=== PATIENT | male | born 1955 | race Caucasian/White ===

== ENCOUNTER 2017-12-05 16:41 | Inpatient (IN) | payer OTHER, MEDICARE ==
[~2017-12-05] VITALS: Ht 177.8 cm; Wt 90.4 kg
[2017-12-05] MEDS ORDERED: NACL 0.9% 1,000 ML IV ONE (16:50)
[2017-12-05 16:55] VITALS: BP_SYST 149
[2017-12-05] MEDS ORDERED: ASPIRIN 81 MG TAB.CHEW PO ONE (17:00)
[2017-12-05] MEDS ORDERED: NITROGLYCERIN 1 INCH (GM) OINT. TP ONE (17:00)
[2017-12-05] MEDS ORDERED: IPRATROPIUM/ALBUTEROL SULFATE 3 ML AMPUL.NEB INH ONE (17:00)
[2017-12-05 17:43] LABS: EOSINOPHILS # (AUTO) 0.3 K/uL (0.0-0.4); EOSINOPHILS % (AUTO) 4.9 % (0.0-4.0); MONOCYTES # (AUTO) 0.5 K/uL (0.0-1.0); MONOCYTES % (AUTO) 7.8 % (1.7-9.3); WHITE BLOOD COUNT (AUTO) 6.9 K/uL (4.8-10.8)
[2017-12-05 17:45] LABS: BASOPHILS # (AUTO) 0.1 K/uL (0.0-0.2); BASOPHILS % (AUTO) 0.9 % (0.0-2.0); HEMATOCRIT 37.2 % (36-54); LYMPHOCYTES # (AUTO) 2.1 K/uL (1.0-5.5); LYMPHOCYTES % (AUTO) 30.3 % (20.5-51.5); MEAN CORPUSCULAR HEMOGLOBIN 30 pg (27-31); MEAN CORPUSCULAR HGB CONC 32 % (32-36); MEAN CORPUSCULAR VOLUME 91 fL (79.0-98.0); NEUTROPHILS % (AUTO) 56.1 % (40.0-70.0); RED BLOOD CELL COUNT(AUTO) 4.07 MIL/uL (4.2-6.2)
[2017-12-05 17:46] LABS: CALCIUM 8.7 mg/dL (8.4-11.0); CREATININE 1.11 mg/dL (0.55-1.30); POTASSIUM 3.8 mmol/L (3.5-5.1)
[2017-12-05 17:50] LABS: PROTHROMBIN TIME 10.6 SECS (9.5-12.5)
[2017-12-05 17:55] LABS: ALBUMIN 3.4 g/dL (3.4-4.8); TOTAL BILIRUBIN 0.3 mg/dL (0.0-1.0)
[2017-12-05 17:57] LABS: PLATELET COUNT (AUTO) 175 K/uL (130-430)
[2017-12-05] MEDS ORDERED: ENOXAPARIN SODIUM 100 MG/ML SYRINGE SUBCUT ONE (18:00)
[2017-12-05] MEDS ORDERED: INSULIN REGULAR, HUMAN 10 UNITS/0.1 ML INJ IVP ONE (18:15)
[2017-12-05] MEDS ORDERED: FUROSEMIDE 40 MG/4 ML VIAL IVP ONE (18:15)
[2017-12-05] MEDS ORDERED: CLOP75TA32 PO (18:26)
[2017-12-05] MEDS ORDERED: LIP80 PO (18:26)
[2017-12-05] MEDS ORDERED: BENA40TA2 PO (18:26)
[2017-12-05] MEDS ORDERED: COR25 PO (18:26)
[2017-12-05] MEDS ORDERED: ACET-2634 PO (18:26)
[2017-12-05] MEDS ORDERED: FURO40TA5 PO (18:26)
[2017-12-05] MEDS ORDERED: ASA81 PO (18:26)
[2017-12-05] MEDS ORDERED: ISOS30TA6 PO (18:26)
[2017-12-05] MEDS ORDERED: SITA1TBM7 PO (18:26)
[2017-12-05] MEDS ORDERED: INSNPH7030 (18:26)
[2017-12-05] MEDS ORDERED: AMLO5TAB4 PO (18:26)
[2017-12-05 18:56] VITALS: BP_SYST 153
[2017-12-05] MEDS ORDERED: NITROGLYCERIN 0.4 MG TAB.SUBL SL PRN (19:45)
[2017-12-05 20:00] VITALS: BP_SYST 131
[2017-12-05] MEDS ORDERED: FUROSEMIDE 40 MG TABLET PO SCH (21:00)
[2017-12-05] MEDS: ACETAMINOPHEN 500 MG TABLET PO SCH (21:03)
[2017-12-05] MEDS: INSULIN NPH/REGULAR 70-30, 100 UNITS/ML, 10 ML VIAL SQ SCH (21:07)
[2017-12-05] MEDS: INSULIN REGULAR, HUMAN 100 UNITS/ML, 10 ML VIAL (novoLIN R) SUBCUT PRN (21:07)
[2017-12-05] MEDS: FUROSEMIDE 40 MG/4 ML VIAL IVP SCH (22:15)
[2017-12-06 00:14] VITALS: BP_SYST 124
[2017-12-06] MEDS: ACETAMINOPHEN 500 MG TABLET PO SCH ×3 (05:58→21:09)
[2017-12-06 06:41] LABS: CALCIUM 8.5 mg/dL (8.4-11.0); CREATININE 1.02 mg/dL (0.55-1.30); POTASSIUM 3.2 mmol/L (3.5-5.1)
[2017-12-06 07:01] LABS: BASOPHILS % (AUTO) 0.5 % (0.0-2.0); EOSINOPHILS # (AUTO) 0.4 K/uL (0.0-0.4); EOSINOPHILS % (AUTO) 5.8 % (0.0-4.0); HEMATOCRIT 36.1 % (36-54); HEMOGLOBIN 11.8 g/dL (14.0-18.0); LYMPHOCYTES # (AUTO) 2.1 K/uL (1.0-5.5); MEAN CORPUSCULAR HEMOGLOBIN 30 pg (27-31); MEAN CORPUSCULAR HGB CONC 33 % (32-36); MEAN CORPUSCULAR VOLUME 92 fL (79.0-98.0); MONOCYTES # (AUTO) 0.6 K/uL (0.0-1.0); MONOCYTES % (AUTO) 8.5 % (1.7-9.3); NEUTROPHILS # (AUTO) 3.8 K/uL (1.8-7.7); NEUTROPHILS % (AUTO) 55.2 % (40.0-70.0); PLATELET COUNT (AUTO) 155 K/uL (130-430); RED BLOOD CELL COUNT(AUTO) 3.92 MIL/uL (4.2-6.2); RED CELL DISTRIBUTION WIDTH 13.2 % (9.0-15.0); WHITE BLOOD COUNT (AUTO) 6.9 K/uL (4.8-10.8)
[2017-12-06] MEDS: CARVEDILOL 25 MG TABLET (COREG) PO SCH ×2 (10:38→18:06)
[2017-12-06] MEDS: BENAZEPRIL HCL 20 MG TABLET (LOTENSIN) PO SCH (10:39)
[2017-12-06] MEDS: amLODIPine BESYLATE 5 MG TABLET PO SCH (10:39)
[2017-12-06] MEDS: ASPIRIN 81 MG TAB.CHEW PO SCH (10:40)
[2017-12-06] MEDS: SPIRONOLACTONE 25 MG TABLET (ALDACTONE) PO SCH (10:40)
[2017-12-06] MEDS: ISOSORBIDE MONONITRATE 30 MG TAB.ER.24H PO SCH (10:40)
[2017-12-06] MEDS: FUROSEMIDE 40 MG/4 ML VIAL IVP SCH ×2 (10:41→20:53)
[2017-12-06] MEDS: INSULIN NPH/REGULAR 70-30, 100 UNITS/ML, 10 ML VIAL SQ SCH ×2 (10:46→21:01)
[2017-12-06] MEDS: ENOXAPARIN SODIUM 40 MG/0.4 ML SYRINGE SUBCUT SCH (10:55)
[2017-12-06 11:24] VITALS: BP_SYST 148
[2017-12-06] MEDS: INSULIN REGULAR, HUMAN 100 UNITS/ML, 10 ML VIAL (novoLIN R) SUBCUT PRN ×3 (11:59→21:02)
[2017-12-06] MEDS ORDERED: CLOPIDOGREL BISULFATE 75 MG TABLET PO ONE (14:15)
[2017-12-06] MEDS: CLOPIDOGREL BISULFATE 75 MG TABLET PO SCH (15:05)
[2017-12-06 15:19] VITALS: BP_SYST 118
[2017-12-06] MEDS ORDERED: POTASSIUM CHLORIDE 20 MEQ/PKT PACKET PO ONE (17:45)
[2017-12-06 20:05] VITALS: BP_SYST 120
[2017-12-06] MEDS ORDERED: ATORVASTATIN 20 MG TABLET PO SCH (21:00)
[2017-12-07 01:40] VITALS: BP_SYST 124
[2017-12-07] MEDS: ACETAMINOPHEN 500 MG TABLET PO SCH ×2 (05:59→14:00)
[2017-12-07 08:00] VITALS: BP_SYST 132
[2017-12-07] MEDS: SPIRONOLACTONE 25 MG TABLET (ALDACTONE) PO SCH (08:46)
[2017-12-07] MEDS: CLOPIDOGREL BISULFATE 75 MG TABLET PO SCH (08:46)
[2017-12-07] MEDS: amLODIPine BESYLATE 5 MG TABLET PO SCH (08:46)
[2017-12-07] MEDS: ASPIRIN 81 MG TAB.CHEW PO SCH (08:47)
[2017-12-07] MEDS: ISOSORBIDE MONONITRATE 30 MG TAB.ER.24H PO SCH (08:47)
[2017-12-07] MEDS: CARVEDILOL 25 MG TABLET (COREG) PO SCH (08:47)
[2017-12-07] MEDS: BENAZEPRIL HCL 20 MG TABLET (LOTENSIN) PO SCH (08:48)
[2017-12-07] MEDS: FUROSEMIDE 40 MG/4 ML VIAL IVP SCH (08:48)
[2017-12-07] MEDS: INSULIN NPH/REGULAR 70-30, 100 UNITS/ML, 10 ML VIAL SQ SCH (08:57)
[2017-12-07] MEDS: ENOXAPARIN SODIUM 40 MG/0.4 ML SYRINGE SUBCUT SCH (09:00)
[2017-12-07 10:18] VITALS: BP_SYST 120
[2017-12-07 11:26] VITALS: BP_SYST 101
[2017-12-07] MEDS: INSULIN REGULAR, HUMAN 100 UNITS/ML, 10 ML VIAL (novoLIN R) SUBCUT PRN (12:13)
[2017-12-07 13:22] LABS: ALBUMIN 3.3 g/dL (3.4-4.8); CALCIUM 9.1 mg/dL (8.4-11.0); CREATININE 1.07 mg/dL (0.55-1.30); POTASSIUM 4.1 mmol/L (3.5-5.1); TOTAL BILIRUBIN 0.4 mg/dL (0.0-1.0)
[2017-12-07 15:04] VITALS: BP_SYST 118
== END 2017-12-07 17:40 | disposition home or self-care (01) | DRG 293 ==
LOC: SED 16:41 → STU 18:32
PROVIDERS: ADMIT Family Medicine; ATTEND Family Medicine
DX: I11.0 Hypertensive heart disease with heart failure (principal); E78.5 Hyperlipidemia, unspecified; I50.23 Acute on chronic systolic (congestive) heart failure; I25.10 Atherosclerotic heart disease of native coronary artery without angina pectoris; R07.89 Other chest pain; E11.65 Type 2 diabetes mellitus with hyperglycemia; F17.200 Nicotine dependence, unspecified, uncomplicated; Z95.1 Presence of aortocoronary bypass graft; Z95.5 Presence of coronary angioplasty implant and graft; Z79.899 Other long term (current) drug therapy; Z79.82 Long term (current) use of aspirin
CPT/HCPCS: 36415; 71045; 76700-TC; 80048; 80053; 82962; 83735-TC; 83880; 84484; 85025; 85610-TC; 85730-TC; 93005; 93306; 94640; 96361; 96372; 96374; 96375; 99285; J1650; J1815; J1940; J7620

== ENCOUNTER 2017-12-22 07:55 | Inpatient (IN) | payer OTHER, MEDICARE ==
[~2017-12-22] VITALS: Ht 177.8 cm; Wt 89.5 kg
[2017-12-22 07:55] VITALS: BP_SYST 136
[~2017-12-22 07:55] MED LIST: ACET-2634 PO; AMLO5TAB4 PO; ASA81 PO; BENA40TA2 PO; CLOP75TA32 PO; COR25 PO; FURO40TA5 PO; INSNPH7030; ISOS30TA6 PO; LIP80 PO; SITA1TBM7 PO
--- NOTE | 2017-12-22 07:55 | NUR ---
BROUGHT BACK TO BED #4 AND TRIAGED, REPORT GIVEN TO MURALI
--- NOTE | 2017-12-22 07:56 | NUR ---
Pt presents to ED sob. Pt reports feeling this way for a month since his bypass surgery. Pt said last night he couldn't sleep d/t dyspnea. Condition has worsened. Pt reports hx CHF, HTN, DM, MA. O2 sat is 98% on RA. VSS. A&O x4
--- NOTE | 2017-12-22 07:57 | NUR ---
ER at bedside examining patient.
[2017-12-22] MEDS ORDERED: NITROGLYCERIN 1 INCH (GM) OINT. TD ONE (08:15)
[2017-12-22 08:32] LABS: HEMATOCRIT 37.8 % (36-54); HEMOGLOBIN 12.5 g/dL (14.0-18.0); MEAN CORPUSCULAR HEMOGLOBIN 30 pg (27-31); MEAN CORPUSCULAR HGB CONC 33 % (32-36); MEAN CORPUSCULAR VOLUME 91 fL (79.0-98.0); PLATELET COUNT (AUTO) 149 K/uL (130-430); RED BLOOD CELL COUNT(AUTO) 4.13 MIL/uL (4.2-6.2); RED CELL DISTRIBUTION WIDTH 13.4 % (9.0-15.0); WHITE BLOOD COUNT (AUTO) 7.7 K/uL (4.8-10.8)
[2017-12-22 08:45] LABS: CALCIUM 8.8 mg/dL (8.4-11.0); CREATININE 0.91 mg/dL (0.55-1.30); POTASSIUM 4.6 mmol/L (3.5-5.1)
[2017-12-22 08:50] LABS: ALBUMIN 3.7 g/dL (3.4-4.8); TOTAL BILIRUBIN 0.7 mg/dL (0.0-1.0)
[2017-12-22 09:06] LABS: BAND % (MANUAL) 3 % (0-6); BASOPHILS % (MANUAL) 0 % (0-2); EOSINOPHILS % (MANUAL) 2 % (0-7); LYMPHOCYTES % (MANUAL) 20 % (20-46); MONOCYTES % (MANUAL) 12 % (0-11)
[2017-12-22] MEDS ORDERED: FUROSEMIDE 40 MG/4 ML VIAL IVP ONE (09:30)
[2017-12-22] MEDS ORDERED: NITROGLYCERIN 0.4 MG TAB.SUBL SL ONE (09:30)
--- NOTE | 2017-12-22 10:51 | NUR ---
Admission Note Received patient from ER with diagnosis of CHF. Initial Plan of Care discussed-patient verbalized understanding. . Oriented to room, call light, pain management and safety.
[2017-12-22 10:52] VITALS: BP_SYST 141
--- NOTE | 2017-12-22 10:58 | NUR ---
Patient will be admitted to care of Dr Nuñez. Admitted to Telemetry unit. Will go to room 103-B. Belongings list completed. Summary report printed. Report will be given at bedside. Transfer to Telemetry via ACLS protocol. Licensed nurse present. IV present no signs or symptoms of infiltration.
--- NOTE | 2017-12-22 11:17 | NUR ---
PAGED PAGED AYE BRAVO AT [phone] SPOKE WITH MADALYN.
--- NOTE | 2017-12-22 12:12 | NUR ---
Paging Dr. Nuñez x2: Paging Dr. Nuñez x2 regarding diet order. Awaiting callback.
--- NOTE | 2017-12-22 12:15 | NUR ---
Rounds: Patient laying in bed resting. Patient denies pain and discomfort. No SOB or respiratory distress noted. Safety precautions in place and call light within reach. No needs at this time. Will continue to monitor
[2017-12-22] MEDS ORDERED: LORazepam 2 MG/ML VIAL IVP PRN (13:15)
[2017-12-22] MEDS ORDERED: ONDANSETRON HCL 4 MG/2 ML VIAL IVP PRN (13:15)
[2017-12-22] MEDS ORDERED: DEXTROSE 50% JECT 50 ML DISP.SYRIN IVP PRN ×2 (13:15)
[2017-12-22] MEDS ORDERED: HYDROcodone/ACETAMIN 10-325 MG TAB PO PRN (13:15)
[2017-12-22] MEDS ORDERED: HYDROcodone/ACETAMIN 5-325 MG TAB (NORCO/ VICODIN) PO PRN (13:15)
--- NOTE | 2017-12-22 13:24 | NUR ---
CONSULTATION PAGED/CALLED Reason for Consultation: CHF Person Who was Notified: [phone] Consulting Physician: Sedrick LIMA Diamond Setter Apprentice Specialty: CARDIOLOGY Ordering Physician: Francisco LIMA
[2017-12-22] MEDS: ACETAMINOPHEN 500 MG TABLET PO SCH ×2 (13:43→21:02)
[2017-12-22] MEDS: NORMAL SALINE 5 ML DISP.SYRIN IVF SCH ×2 (13:44→21:00)
--- NOTE | 2017-12-22 14:15 | NUR ---
Rounding: Patient laying in bed resting. Patient denies pain and discomfort. No distress noted. Will continue to monitor.
--- NOTE | 2017-12-22 15:30 | NUR ---
CHF Orders per protocol: Patient had an Echocardiogram on 12/06/2017 during last admission. Patient on Coreg 25 mg BID.
[2017-12-22 16:10] VITALS: BP_SYST 139
[2017-12-22] MEDS: FUROSEMIDE 40 MG TABLET PO SCH (17:36)
[2017-12-22] MEDS: INSULIN REGULAR, HUMAN 100 UNITS/ML, 10 ML VIAL (novoLIN R) SUBCUT PRN ×2 (17:36→21:05)
--- NOTE | 2017-12-22 17:37 | NUR ---
Accucheck: Blood sugar 178, covered with 2 units Novolin R per sliding scale.
--- NOTE | 2017-12-22 18:33 | NUR ---
Closing Note: Patient is laying in bed resting. Patient denies pain and discomfort. Breathing is even and unlabored with no distress noted. IV patent and saline locked. Safety precautions in place; bed in lowest position, wheels locked, side rails x3, bed alarm activated and call light within reach. All needs met. Will endorse plan of care to NOC, nurse.
--- NOTE | 2017-12-22 19:05 | NUR ---
OPENING NOTES RECEIVED PATIENT IN BED AAO X4. DENIES PAIN AT THIS TIME. BREATHING REGULAR AND UNLABORED. PLAN OF CARE REVIEWED WITH PATIENT. RT HAND IV LINE INTACT. CALL LIGHT WITHIN REACH.
[2017-12-22 20:50] VITALS: BP_SYST 137
[2017-12-22] MEDS: CARVEDILOL 25 MG TABLET (COREG) PO SCH (20:53)
[2017-12-22] MEDS: ATORVASTATIN 20 MG TABLET PO SCH (20:53)
--- NOTE | 2017-12-22 21:05 | NUR ---
MED PASS DUE MEDICATIONS GIVEN AND TOLERATED. NO DISTRESS NOTED. CALL LIGHT WITHIN EASY REACH.
[2017-12-23 00:08] VITALS: BP_SYST 121
--- NOTE | 2017-12-23 00:45 | NUR ---
ROUNDS RESTING IN BED. DENIES PAIN. BREATHING UNLABORED. REMINDED PATIENT OF NPO STATUS FOR STRESS TEST. PATIENT VERBALIZES UNDERSTANDING. CALL LIGHT WITHIN EASY REACH. VITAL SIGNS STABLE.
--- NOTE | 2017-12-23 03:11 | NUR ---
ROUNDS PATIENT RESTING IN BED. NO DISTRESS NOTED. SR ON TELE MONITOR. BED ALARM ON. CALL LIGHT AND URINAL WITHIN REACH.
[2017-12-23] MEDS: FUROSEMIDE 40 MG TABLET PO SCH ×2 (05:56→17:40)
[2017-12-23] MEDS: ACETAMINOPHEN 500 MG TABLET PO SCH (05:56)
--- NOTE | 2017-12-23 06:30 | NUR ---
CLOSING NOTES PATIENT AWAKE IN BED. DENIES PAIN. BLOOD SUGAR 168. PATIENT REMINDED OF NPO STATUS FOR HEART STRESS TEST TODAY. IV LINE INTACT TO RT HAND. NEEDS ATTENDED. CALL LIGHT WITHIN REACH. SIDERAILS UP X2. BED IN LOWEST LOCKED POSITION.
[2017-12-23] MEDS: NORMAL SALINE 5 ML DISP.SYRIN IVF SCH ×3 (06:33→22:51)
[2017-12-23 07:54] LABS: CALCIUM 8.7 mg/dL (8.4-11.0); CREATININE 1.1 mg/dL (0.55-1.30); PHOSPHORUS 3.6 mg/dL (2.7-4.5)
[2017-12-23 08:00] VITALS: BP_SYST 128
--- NOTE | 2017-12-23 08:00 | NUR ---
initial notes rec patient awake alert with ivl on the l forearm intact. no infiltration noted. npo for now for stress test at 1030. resp easy and unlabored . no sob noted. call light within reached and knows when to call for assistance. bed in low position and side rails up and locked. fall/safety precaution instructed.
[2017-12-23 08:03] LABS: BASOPHILS # (AUTO) 0.1 K/uL (0.0-0.2); EOSINOPHILS # (AUTO) 0.2 K/uL (0.0-0.4); EOSINOPHILS % (AUTO) 3.3 % (0.0-4.0); HEMATOCRIT 36.5 % (36-54); HEMOGLOBIN 11.7 g/dL (14.0-18.0); LYMPHOCYTES # (AUTO) 1.4 K/uL (1.0-5.5); LYMPHOCYTES % (AUTO) 23.9 % (20.5-51.5); MEAN CORPUSCULAR HEMOGLOBIN 29 pg (27-31); MEAN CORPUSCULAR HGB CONC 32 % (32-36); MEAN CORPUSCULAR VOLUME 92 fL (79.0-98.0); MONOCYTES # (AUTO) 0.8 K/uL (0.0-1.0); MONOCYTES % (AUTO) 13.9 % (1.7-9.3); NEUTROPHILS # (AUTO) 3.5 K/uL (1.8-7.7); NEUTROPHILS % (AUTO) 57.9 % (40.0-70.0); PLATELET COUNT (AUTO) 129 K/uL (130-430); RED BLOOD CELL COUNT(AUTO) 3.98 MIL/uL (4.2-6.2); RED CELL DISTRIBUTION WIDTH 13.3 % (9.0-15.0)
[2017-12-23] MEDS ORDERED: METFORMIN HCL PO SCH (09:00)
[2017-12-23] MEDS ORDERED: [UNRECOGNIZED DRUG - OTHER] PO SCH (09:00)
[2017-12-23] MEDS: CARVEDILOL 25 MG TABLET (COREG) PO SCH ×2 (09:00→21:24)
[2017-12-23] MEDS ORDERED: SITAGLIPTIN PHOS PO SCH (09:00)
[2017-12-23] MEDS ORDERED: REGADENOSON 0.4 MG/5 ML SYRINGE IVP ONE (10:30)
--- NOTE | 2017-12-23 11:00 | NUR ---
rounds pt back from stress test and statred eating at bedside. will give due meds once last phase of the test is done.
[2017-12-23] MEDS: INSULIN REGULAR, HUMAN 100 UNITS/ML, 10 ML VIAL (novoLIN R) SUBCUT PRN ×2 (12:16→17:31)
--- NOTE | 2017-12-23 12:39 | NUR ---
rounds no hypo hyperglycemic reaction noted. call light within reached. no acute distress noted.
[2017-12-23] MEDS ORDERED: ACETAMINOPHEN 325 MG TABLET PO PRN (13:15)
[2017-12-23 13:37] VITALS: BP_SYST 143
--- NOTE | 2017-12-23 15:00 | NUR ---
rounds asleep when rounds made. no sob noted. call light within reached.
[2017-12-23 16:00] VITALS: BP_SYST 149
--- NOTE | 2017-12-23 16:00 | NUR ---
rounds sleeps at intervals otherwise watching tv. no sob noted. bed in low position. call light within reached.
[2017-12-23] MEDS: CLOPIDOGREL BISULFATE 75 MG TABLET PO SCH (17:36)
[2017-12-23] MEDS: ASPIRIN 81 MG TAB.CHEW PO SCH (17:37)
[2017-12-23] MEDS: ISOSORBIDE MONONITRATE 30 MG TAB.ER.24H PO SCH (17:38)
[2017-12-23] MEDS: amLODIPine BESYLATE 5 MG TABLET PO SCH (17:39)
[2017-12-23] MEDS: BENAZEPRIL HCL 20 MG TABLET (LOTENSIN) PO SCH (17:39)
--- NOTE | 2017-12-23 18:40 | NUR ---
closing notes no hypo hyperglycemic reaction noted. ate dinner and with good appetite. denies pain. call light within reached. bed in low position and side rails up and locked.
--- NOTE | 2017-12-23 19:20 | NUR ---
OPENING NOTES RECEIVED PATIENT IN BED. AAO X4. DENIES ANY PAIN. BREATHING UNLABORED ON ROM AIR. PLAN OF CARE REVIEWED WITH PATIENT. CALL LIGHT WITHIN EASY REACH. BED IN LOWEST LOCKED POSITION.
[2017-12-23 21:00] VITALS: BP_SYST 110
[2017-12-23] MEDS: ATORVASTATIN 20 MG TABLET PO SCH (21:23)
--- NOTE | 2017-12-23 21:25 | NUR ---
MED PASS DUE MEDICATIONS GIVEN AND TOLERATED. VITAL SIGNS STABLE. BLOOD SUGAR 135 NO COVERAGE NEEDED PER SLIDING SCALE.
[2017-12-24 00:56] VITALS: BP_SYST 96
--- NOTE | 2017-12-24 01:00 | NUR ---
ROUNDS PATIENT IN BED RESTING. BREATHING UNLABORED ON ROOM AIR. PATIENT DOES NOT WANT TO USE O2. PER PT HE'S BREATHING OK. CALL LIGHT WITHIN EASY REACH.
--- NOTE | 2017-12-24 03:30 | NUR ---
ROUNDS PATIENT JUST GOT BACK TO BED FROM THE BATHROOM. NO SOB NOTED. DENIES PAIN. PLACED CALL LIGHT WITHIN REACH.
[2017-12-24 05:29] LABS: BASOPHILS # (AUTO) 0.1 K/uL (0.0-0.2); BASOPHILS % (AUTO) 1.8 % (0.0-2.0); EOSINOPHILS # (AUTO) 0.5 K/uL (0.0-0.4); EOSINOPHILS % (AUTO) 7.7 % (0.0-4.0); HEMATOCRIT 34.8 % (36-54); HEMOGLOBIN 11.4 g/dL (14.0-18.0); LYMPHOCYTES # (AUTO) 1.6 K/uL (1.0-5.5); MEAN CORPUSCULAR HEMOGLOBIN 30 pg (27-31); MEAN CORPUSCULAR HGB CONC 33 % (32-36); MEAN CORPUSCULAR VOLUME 91 fL (79.0-98.0); MONOCYTES # (AUTO) 0.6 K/uL (0.0-1.0); MONOCYTES % (AUTO) 9.4 % (1.7-9.3); NEUTROPHILS # (AUTO) 3.4 K/uL (1.8-7.7); NEUTROPHILS % (AUTO) 55.1 % (40.0-70.0); PLATELET COUNT (AUTO) 124 K/uL (130-430); RED BLOOD CELL COUNT(AUTO) 3.83 MIL/uL (4.2-6.2); RED CELL DISTRIBUTION WIDTH 13.5 % (9.0-15.0); WHITE BLOOD COUNT (AUTO) 6.2 K/uL (4.8-10.8)
[2017-12-24 06:00] LABS: CALCIUM 8.4 mg/dL (8.4-11.0); CREATININE 1.08 mg/dL (0.55-1.30); POTASSIUM 3.5 mmol/L (3.5-5.1)
[2017-12-24] MEDS: INSULIN REGULAR, HUMAN 100 UNITS/ML, 10 ML VIAL (novoLIN R) SUBCUT PRN ×3 (06:00→21:36)
[2017-12-24] MEDS: NORMAL SALINE 5 ML DISP.SYRIN IVF SCH ×3 (06:03→21:38)
[2017-12-24] MEDS: FUROSEMIDE 40 MG TABLET PO SCH ×2 (06:03→17:45)
--- NOTE | 2017-12-24 06:03 | NUR ---
MED PASS DUE MEDICATIONS GIVEN. BLOOD SUGAR 162 COVERED WITH 2 UNITS OF REGULAR INSULIN PER SLIDING SCALE.
--- NOTE | 2017-12-24 06:41 | NUR ---
CLOSING NOTES PATIENT RESTING IN BED. NO DISTRESS NOTED. NEEDS ATTENDED. CALL LIGHT WITHIN REACH. SIDERAILS UP X2. BED IN LOWEST LOCKED POSITION.
[2017-12-24 08:00] VITALS: BP_SYST 103
--- NOTE | 2017-12-24 08:00 | NUR ---
initial notes rec patient awake alert sitting at the edge of the bed and eating breakfast. ivl on the r hand intact. no infiltration noted. resp easy and unlabored. no acute distress. no chest pain noted. bed in low position and side rails up and locked. call lightiwhtn reached and knows when to call for assistance.
[2017-12-24] MEDS: ASPIRIN 81 MG TAB.CHEW PO SCH (09:41)
[2017-12-24] MEDS: CLOPIDOGREL BISULFATE 75 MG TABLET PO SCH (09:41)
[2017-12-24] MEDS: amLODIPine BESYLATE 5 MG TABLET PO SCH (09:42)
[2017-12-24] MEDS: ISOSORBIDE MONONITRATE 30 MG TAB.ER.24H PO SCH (09:43)
--- NOTE | 2017-12-24 10:00 | NUR ---
rounds taking a nap at this time. resting comfortably. no sob noted.
--- NOTE | 2017-12-24 12:00 | NUR ---
rounds pt is eating lunch. denies pain.uses the urinal to void at bedside. call light within reached.
[2017-12-24 12:02] VITALS: BP_SYST 124
[2017-12-24] MEDS: CARVEDILOL 25 MG TABLET (COREG) PO SCH ×2 (12:11→21:32)
[2017-12-24] MEDS: BENAZEPRIL HCL 20 MG TABLET (LOTENSIN) PO SCH (12:12)
--- NOTE | 2017-12-24 14:00 | NUR ---
rounds asleep when rounds made. resting quietly. call light within reached.
[2017-12-24 16:02] VITALS: BP_SYST 117
--- NOTE | 2017-12-24 18:00 | NUR ---
rounds no hypo hyperglycemic reaction noted. eating dinner and brendan well. stable and needs attended
--- NOTE | 2017-12-24 20:00 | NUR ---
INITIAL NOTES: PT IS ALERT AND ORIENTED ; NOT IN ANY ACUTE DISTRESS; VITALS ARE STABLE ;ASSESSMENT DONE ; ON ROOM AIR; DENIED ANY CHEST PAIN OR DISCOMFORT ; NO SOB AT THIS TIME ; IV ON THE R WRIST 20 G, NO S/S OF ANY INFILTRATION NOTED ; FLUSHED WELL ; PT REFUSED BED ALARM ; ENCOURAGED PT TO CALL FOR ASSIST ; CALL ELMORE IN REACH ; WILL CONTINUE TO MONITOR PT .
[2017-12-24 21:15] VITALS: BP_SYST 115
--- NOTE | 2017-12-24 21:15 | NUR ---
MD ROUNDS: DR Vickie LIMA AT BEDSIDE ; MD EDUCATED PT ABOUT THE DIET - NA INTAKE , FLUID RESTRICTION ETC . PT VERBALIZED UNDERSTANDING AT THIS TIME TO
[2017-12-24] MEDS: ATORVASTATIN 20 MG TABLET PO SCH (21:28)
--- NOTE | 2017-12-24 21:30 | NUR ---
MEDICATION : DUE MEDS GIVEN ; EDUCATED PT ON COREG ; NO QUESTIONS AT TH IS TIME ; WILL CONTINUE TO MONITOR PT .
--- NOTE | 2017-12-25 00:10 | NUR ---
RN NOTES: PT IS SLEEPING ON AND OFF , NOT IN ANY ACUTE DISTRESS; WILL CONTINUE TO MONITOR PT .
[2017-12-25 01:00] VITALS: BP_SYST 113
--- NOTE | 2017-12-25 02:07 | NUR ---
RN NOTES: PT IS SLEEPING ,RESPIRATION IS EVEN AND NON LABORED ; WILL CONTINUE TO MONITOR PT .
--- NOTE | 2017-12-25 04:10 | NUR ---
RN NOTES: PT IS SLEEPING , NOT IN ANY ACUTE DISTRESS; WILL CONTINUE TO MONITOR PT .
[2017-12-25] MEDS: FUROSEMIDE 40 MG TABLET PO SCH (06:20)
[2017-12-25] MEDS: NORMAL SALINE 5 ML DISP.SYRIN IVF SCH (06:20)
[2017-12-25] MEDS: INSULIN REGULAR, HUMAN 100 UNITS/ML, 10 ML VIAL (novoLIN R) SUBCUT PRN ×2 (06:23→11:23)
--- NOTE | 2017-12-25 06:30 | NUR ---
RN NOTES: DUE MEDS GIVEN ; PT IS COMFORTABLE ; BS 160 , 2 UNITS OF REGULAR INSULIN GIVEN
[2017-12-25 07:17] LABS: BASOPHILS # (AUTO) 0.1 K/uL (0.0-0.2); BASOPHILS % (AUTO) 1.1 % (0.0-2.0); EOSINOPHILS # (AUTO) 0.7 K/uL (0.0-0.4); EOSINOPHILS % (AUTO) 9.8 % (0.0-4.0); HEMATOCRIT 35.9 % (36-54); HEMOGLOBIN 11.6 g/dL (14.0-18.0); LYMPHOCYTES # (AUTO) 1.9 K/uL (1.0-5.5); LYMPHOCYTES % (AUTO) 25.9 % (20.5-51.5); MEAN CORPUSCULAR HEMOGLOBIN 29 pg (27-31); MEAN CORPUSCULAR HGB CONC 33 % (32-36); MEAN CORPUSCULAR VOLUME 90 fL (79.0-98.0); MONOCYTES # (AUTO) 0.6 K/uL (0.0-1.0); MONOCYTES % (AUTO) 8.6 % (1.7-9.3); NEUTROPHILS # (AUTO) 4.2 K/uL (1.8-7.7); NEUTROPHILS % (AUTO) 54.6 % (40.0-70.0); PLATELET COUNT (AUTO) 138 K/uL (130-430); RED BLOOD CELL COUNT(AUTO) 3.97 MIL/uL (4.2-6.2); RED CELL DISTRIBUTION WIDTH 13.1 % (9.0-15.0); WHITE BLOOD COUNT (AUTO) 7.5 K/uL (4.8-10.8)
[2017-12-25 07:23] LABS: CREATININE 1.02 mg/dL (0.55-1.30); POTASSIUM 3.5 mmol/L (3.5-5.1)
--- NOTE | 2017-12-25 07:30 | NUR ---
CLOSING NOTES: REPOERT GIVEN TO RN AT BEDSIDE ; PT IS SLEEPING , NOT IN ANY ACUTE DISTRESS; ALL NEEDS MET .
[2017-12-25 08:00] VITALS: BP_SYST 132
--- NOTE | 2017-12-25 08:00 | NUR ---
Opening Note Report received from [facility] shift nurse. Patient is currently eating breakfast in bed. No signs of shortness of breath or bilateral LE edema noted. IV is on the right hand 20g saline locked. Call light is within reach and bed is in low position. Will continue to monitor.
[2017-12-25] MEDS: amLODIPine BESYLATE 5 MG TABLET PO SCH (08:59)
[2017-12-25] MEDS: ASPIRIN 81 MG TAB.CHEW PO SCH (08:59)
[2017-12-25] MEDS: BENAZEPRIL HCL 20 MG TABLET (LOTENSIN) PO SCH (08:59)
[2017-12-25] MEDS: ISOSORBIDE MONONITRATE 30 MG TAB.ER.24H PO SCH (09:00)
[2017-12-25] MEDS: CLOPIDOGREL BISULFATE 75 MG TABLET PO SCH (09:00)
[2017-12-25] MEDS: CARVEDILOL 25 MG TABLET (COREG) PO SCH (09:00)
--- NOTE | 2017-12-25 10:13 | NUR ---
Rounds Patient is currently resting in bed. No signs of distress noted.
[2017-12-25 11:24] VITALS: BP_SYST 111
[2017-12-25] MEDS ORDERED: LINA5TAB2 PO (11:38)
[2017-12-25 11:57] VITALS: BP_SYST 111
--- NOTE | 2017-12-25 12:21 | NUR ---
Transition of Care Instructions All transition of care instructions were provided to the patient. He verbalized understanding of all. 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 Mccauley , on 01/17/18. Patient is already taking Benazepril for his congestive heart failure.
--- NOTE | 2017-12-25 12:50 | NUR ---
Transition of Care Note IV and ID band removed. Patient left the unit in stable condition. All belonging were returned to the patient.
== END 2017-12-25 13:00 | disposition home or self-care (01) | DRG 291 ==
LOC: SED 07:55 → STU 09:55
PROVIDERS: ADMIT Preventive Medicine Preventive Medicine/Occupational Environmental Medicine; ATTEND Preventive Medicine Preventive Medicine/Occupational Environmental Medicine
DX: I11.0 Hypertensive heart disease with heart failure (principal); J96.00 Acute respiratory failure, unspecified whether with hypoxia or hypercapnia; I50.9 Heart failure, unspecified; E11.9 Type 2 diabetes mellitus without complications; I34.0 Nonrheumatic mitral (valve) insufficiency; I37.1 Nonrheumatic pulmonary valve insufficiency; I25.10 Atherosclerotic heart disease of native coronary artery without angina pectoris; E78.5 Hyperlipidemia, unspecified; Z79.899 Other long term (current) drug therapy; Z79.82 Long term (current) use of aspirin; Z72.0 Tobacco use; Z82.3 Family history of stroke; Z82.49 Family history of ischemic heart disease and other diseases of the circulatory system; Z83.3 Family history of diabetes mellitus; Z95.1 Presence of aortocoronary bypass graft; Z95.5 Presence of coronary angioplasty implant and graft
CPT/HCPCS: 36415; 71045; 80048; 80053; 82962; 83735-TC; 83880; 84100-TC; 84484; 85007; 85025; 85027; 87081; 93017; 96374; 99291; A9500; J1815; J1940; J2785

== ENCOUNTER 2018-01-09 06:14 | Inpatient (IN) | payer OTHER, MEDICARE ==
[~2018-01-09] VITALS: Ht 177.8 cm; Wt 91.2 kg
[~2018-01-09 06:14] MED LIST changes: +LINA5TAB2 PO
[2018-01-09 06:15] VITALS: BP_SYST 157
--- NOTE | 2018-01-09 06:17 | NUR ---
patient states he has had trouble breathing since last night. reoprts history of chf, diabetes, htn, and triple bypass in past. speaning in full sentences, pulse ox is 98% on room air. denies any chest pain or tightness
--- NOTE | 2018-01-09 06:17 | NUR ---
Patient to ER bed 7 to gown for evaluation. Side rails up. Report given to Carmela.
[2018-01-09] MEDS ORDERED: NACL 0.9% 1,000 ML IV ONE (06:24)
--- NOTE | 2018-01-09 06:25 | NUR ---
ER Dr. Garland at bedside examining patient. CXR performed at bedside
[2018-01-09] MEDS ORDERED: NITROGLYCERIN 1 INCH (GM) OINT. TP ONE (06:30)
--- NOTE | 2018-01-09 06:41 | NUR ---
#20 gauge angiocath placed to LFA. Use of asceptic technique. Opsite placed over site. Blood return noted. Blood for lab drawn from site. Flushed with 10 cc of normal saline. No evidence of infiltration noted. Patient tolerated well.
[2018-01-09 06:52] LABS: BASOPHILS # (AUTO) 0.1 K/uL (0.0-0.2); BASOPHILS % (AUTO) 0.9 % (0.0-2.0); EOSINOPHILS # (AUTO) 0.5 K/uL (0.0-0.4); EOSINOPHILS % (AUTO) 6.3 % (0.0-4.0); HEMATOCRIT 40.1 % (36-54); HEMOGLOBIN 12.9 g/dL (14.0-18.0); LYMPHOCYTES # (AUTO) 1.6 K/uL (1.0-5.5); LYMPHOCYTES % (AUTO) 19.8 % (20.5-51.5); MEAN CORPUSCULAR HEMOGLOBIN 29 pg (27-31); MEAN CORPUSCULAR HGB CONC 32 % (32-36); MEAN CORPUSCULAR VOLUME 90 fL (79.0-98.0); MONOCYTES # (AUTO) 0.5 K/uL (0.0-1.0); MONOCYTES % (AUTO) 6.7 % (1.7-9.3); NEUTROPHILS # (AUTO) 5.3 K/uL (1.8-7.7); PLATELET COUNT (AUTO) 157 K/uL (130-430); RED BLOOD CELL COUNT(AUTO) 4.45 MIL/uL (4.2-6.2); RED CELL DISTRIBUTION WIDTH 13.8 % (9.0-15.0)
[2018-01-09 07:08] LABS: CALCIUM 8.9 mg/dL (8.4-11.0); CREATININE 0.94 mg/dL (0.55-1.30)
[2018-01-09 07:15] LABS: PROTHROMBIN TIME 10.4 SECS (9.5-12.5)
[2018-01-09 07:16] LABS: ALBUMIN 3.6 g/dL (3.4-4.8); TOTAL BILIRUBIN 0.4 mg/dL (0.0-1.0)
--- NOTE | 2018-01-09 07:21 | NUR ---
ASSUMED CARE FOUND PT. LYING SUPINE IN BED A&OX3 SPEAKING IN FULL SENTENCES, DENIES ANY CHEST PAIN, NSR ON MONITOR. AWAIITNG FOR MD REEVAL
[2018-01-09] MEDS ORDERED: FUROSEMIDE 40 MG/4 ML VIAL IVP ONE (07:30)
--- NOTE | 2018-01-09 08:26 | NUR ---
Medication reconciliation completed with information provided by patient. Any prior medication reconciliation on file was reviewed and corrected.
[2018-01-09] MEDS ORDERED: methylPREDNISolone SOD SUCC/PF 62.5 MG/ML VIAL IVP ONE (08:45)
[2018-01-09] MEDS ORDERED: ALBUTEROL SULFATE 0.083% 2.5 MG/3 ML VIAL.NEB IH ONE (08:45)
[2018-01-09] MEDS ORDERED: IPRATROPIUM BROM 0.5 MG/2.5 ML VIAL.NEB (ATROVENT) IH ONE (08:45)
--- NOTE | 2018-01-09 09:00 | NUR ---
RT at bedside giving breathing tx.
--- NOTE | 2018-01-09 09:15 | NUR ---
Patient will be admitted to care of Dr Nuñez. Admitted to telemetry unit. Will go to room 118B. Belongings list completed. Summary report printed. Report will be given at bedside.
--- NOTE | 2018-01-09 09:17 | NUR ---
ADMISSION NOTE Received patient from ER via ana, received report from ALEXIA MADRIGAL. Patient admitted with diagnosis of RESPIRATORY FAILURE. Patient oriented to hospital routine, call light, toileting and safety-patient verbalized understanding.
[2018-01-09 09:25] VITALS: BP_SYST 133
[2018-01-09 09:29] VITALS: BP_SYST 133
--- NOTE | 2018-01-09 10:23 | NUR ---
Rounds Patient is resting in bed no signs of distress noted at the moment. Patient is complaining of some SOB. Dr. Whitmore is covering for Dr. Carbone and will see the patient. IV is on the LFA 20g, saline locked. Call light is within reach and bed is in low position.
[2018-01-09] MEDS ORDERED: LORazepam 2 MG/ML VIAL IVP PRN (11:00)
[2018-01-09] MEDS ORDERED: HYDROcodone/ACETAMIN 5-325 MG TAB (NORCO/ VICODIN) PO PRN (11:00)
[2018-01-09] MEDS ORDERED: ACETAMINOPHEN 325 MG TABLET PO PRN (11:00)
[2018-01-09] MEDS ORDERED: ONDANSETRON HCL 4 MG/2 ML VIAL IVP PRN (11:00)
[2018-01-09] MEDS ORDERED: HYDROcodone/ACETAMIN 10-325 MG TAB PO PRN (11:00)
[2018-01-09] MEDS ORDERED: DEXTROSE 50% JECT 50 ML DISP.SYRIN IVP PRN ×2 (11:00)
[2018-01-09] MEDS ORDERED: HYDROmorphone 2 MG/ML VIAL IVP PRN (11:00)
[2018-01-09 11:18] VITALS: BP_SYST 133
--- NOTE | 2018-01-09 11:31 | NUR ---
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
--- NOTE | 2018-01-09 11:43 | NUR ---
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
[2018-01-09] MEDS: INSULIN REGULAR, HUMAN 100 UNITS/ML, 10 ML VIAL (novoLIN R) SUBCUT PRN ×3 (11:54→21:03)
[2018-01-09 11:59] LABS: NEUTROPHILS % (AUTO) 66.3 % (40.0-70.0)
--- NOTE | 2018-01-09 12:30 | NUR ---
Rounds Patient is resting in bed. O2 sat is at 99% on 2l o2 via NC. Will continue to monitor.
[2018-01-09] MEDS: ACETAMINOPHEN 500 MG TABLET PO SCH ×2 (14:00→21:14)
[2018-01-09] MEDS: NORMAL SALINE 5 ML DISP.SYRIN IVF SCH ×2 (14:14→21:14)
--- NOTE | 2018-01-09 14:37 | NUR ---
Rounds Patient is resting in bed. No signs of distress noted.
[2018-01-09 15:20] VITALS: BP_SYST 146
--- NOTE | 2018-01-09 16:14 | NUR ---
Rounds/MD Rounds Dr. Nicholas, who is covering for Sedrick Singh, rounded on the patient. Orders were received. Patient is not in any distress at the moment. Call light is within reach and bed is in low position.
--- NOTE | 2018-01-09 18:10 | NUR ---
Closing Note Patient is currently resting in bed and does not report any SOB at the moment. IV is on the LFA 20g saline locked. Call light is within reach and bed is in low position. Safety precautions are in place. Will endorse care to the oncoming nurse.
--- NOTE | 2018-01-09 19:52 | NUR ---
INITIAL NOTE AT INITIAL ASSESSMENT, PATIENT IS RESTING IN BED, STABLE, NO SIGNS OF RESPIRATORY DISTRESS. FAMILY IS AT BEDSIDE. PATIENT VERBALIZES NO PAIN. PLAN OF CARE FOR THE EVENING IS COMMUNICATED WITH THE PATIENT AND FAMILY. CALL LIGHT- TEACH BACK IS SUCCESSFUL. BED IS LOCKED, ALARMED, AND AT THE LOWEST LEVEL. FALL AND SAFETY PRECAUTIONS WILL BE IN PLACE THROUGHOUT THE SHIFT.
[2018-01-09 20:00] VITALS: BP_SYST 133
[2018-01-09] MEDS: FUROSEMIDE 40 MG TABLET PO SCH (20:52)
[2018-01-09] MEDS: CARVEDILOL 25 MG TABLET (COREG) PO SCH (20:53)
--- NOTE | 2018-01-09 21:50 | NUR ---
BED ALARM REFUSAL NOTE PATIENT IS RESTING IN BED, STABLE, NO SIGNS OF RESPIRATORY DISTRESS. FAMILY IS AT BEDSIDE. BLOOD SUGAR CHECK AT THIS TIME REQUIRES INSULIN COVERAGE PER SSI ORDERED BY MD. BED IS LOCKED, AND AT THE LOWEST LEVEL. PATIENT IS REFUSING BED ALARM DESPITE EDUCATION. PATIENT IS NOT A FALL RISK PER BOSS FALL SCALE, HE IS ASSESSED WITH STEADY GAIT AT THIS TIME.
--- NOTE | 2018-01-09 23:47 | NUR ---
NOTE PATIENT IS SLEEPING, STABLE, NO SIGNS OF RESPIRATORY DISTRESS. CALL LIGHT WITHIN REACH. BED IS LOCKED, AND AT THE LOWEST LEVEL.
[2018-01-10 00:51] VITALS: BP_SYST 132
--- NOTE | 2018-01-10 01:45 | NUR ---
NOTE PATIENT IS SLEEPING, STABLE, NO SIGNS OF RESPIRATORY DISTRESS. CALL LIGHT WITHIN REACH. BED IS LOCKED, AND AT THE LOWEST LEVEL.
--- NOTE | 2018-01-10 03:10 | NUR ---
NOTE PATIENT IS SLEEPING, STABLE, NO SIGNS OF RESPIRATORY DISTRESS. CALL LIGHT WITHIN REACH. BED IS LOCKED, AND AT THE LOWEST LEVEL.
--- NOTE | 2018-01-10 05:07 | NUR ---
NOTE PATIENT IS SLEEPING, STABLE, NO SIGNS OF RESPIRATORY DISTRESS. CALL LIGHT WITHIN REACH. BED IS LOCKED, AND AT THE LOWEST LEVEL.
[2018-01-10] MEDS: ACETAMINOPHEN 500 MG TABLET PO SCH ×3 (06:00→20:22)
[2018-01-10] MEDS: NORMAL SALINE 5 ML DISP.SYRIN IVF SCH ×3 (06:03→20:14)
[2018-01-10] MEDS: INSULIN REGULAR, HUMAN 100 UNITS/ML, 10 ML VIAL (novoLIN R) SUBCUT PRN ×4 (06:06→20:13)
--- NOTE | 2018-01-10 06:22 | NUR ---
CLOSING NOTE PATIENT IS RESTING IN BED, STABLE, NO SIGNS OF RESPIRATORY DISTRESS. BLOOD SUGAR CHECK AT THIS TIME REQUIRES INSULIN COVERAGE PER SSI ORDERED BY MD. THROUGHOUT THE NIGHT, PATIENT DID NOT HAVE ANY DIFFICULTY BREATHING OR SHORTNESS OF BREATH. CALL LIGHT WITHIN REACH. BED IS LOCKED, AND AT THE LOWEST LEVEL.
[2018-01-10 06:40] LABS: BASOPHILS % (AUTO) 0.4 % (0.0-2.0); EOSINOPHILS % (AUTO) 0.2 % (0.0-4.0); HEMATOCRIT 36.2 % (36-54); HEMOGLOBIN 11.8 g/dL (14.0-18.0); LYMPHOCYTES # (AUTO) 1.1 K/uL (1.0-5.5); LYMPHOCYTES % (AUTO) 12.7 % (20.5-51.5); MEAN CORPUSCULAR HEMOGLOBIN 30 pg (27-31); MEAN CORPUSCULAR HGB CONC 33 % (32-36); MEAN CORPUSCULAR VOLUME 91 fL (79.0-98.0); MONOCYTES # (AUTO) 0.5 K/uL (0.0-1.0); MONOCYTES % (AUTO) 5.9 % (1.7-9.3); NEUTROPHILS # (AUTO) 7.2 K/uL (1.8-7.7); PLATELET COUNT (AUTO) 145 K/uL (130-430); RED BLOOD CELL COUNT(AUTO) 3.97 MIL/uL (4.2-6.2); RED CELL DISTRIBUTION WIDTH 13.5 % (9.0-15.0); WHITE BLOOD COUNT (AUTO) 8.8 K/uL (4.8-10.8)
[2018-01-10 07:07] LABS: ALBUMIN 3.4 g/dL (3.4-4.8); CALCIUM 8.7 mg/dL (8.4-11.0); CREATININE 0.93 mg/dL (0.55-1.30); PHOSPHORUS 3.6 mg/dL (2.7-4.5); POTASSIUM 3.6 mmol/L (3.5-5.1); TOTAL BILIRUBIN 0.4 mg/dL (0.0-1.0)
[2018-01-10 07:50] VITALS: BP_SYST 130
--- NOTE | 2018-01-10 07:50 | NUR ---
INITIAL ROUNDS Received pt AAOx4, no s/s resp distress, no c/o SOB, no c/o pain or discomfort. Plan of care for the day reviewed with pt-pt verbalized his understanding. Pt ambulatory with steady gait with no c/o SOB-observed when pt ambulated to the bathroom. Pain management, disease process, skin and safety discussed-teach back done. Call light within reach.
--- NOTE | 2018-01-10 08:17 | NUR ---
Nutrition Update Nahid Scale 17 noted. Pt admitted for respiratory failure Diet: cardiac low cholesterol low fat 2gm Na diet BMI: 28.8 kg/m2 RD to follow per nutrition care standards.
[2018-01-10 08:19] LABS: NEUTROPHILS % (AUTO) 80.8 % (40.0-70.0)
[2018-01-10] MEDS: BENAZEPRIL HCL 20 MG TABLET (LOTENSIN) PO SCH (08:58)
[2018-01-10] MEDS: CARVEDILOL 25 MG TABLET (COREG) PO SCH ×2 (08:59→20:10)
[2018-01-10] MEDS: amLODIPine BESYLATE 5 MG TABLET PO SCH (08:59)
[2018-01-10] MEDS ORDERED: METFORMIN HCL PO SCH (09:00)
[2018-01-10] MEDS: FUROSEMIDE 40 MG TABLET PO SCH ×2 (09:00→20:09)
[2018-01-10] MEDS ORDERED: SITAGLIPTIN PHOS PO SCH (09:00)
[2018-01-10] MEDS ORDERED: [UNRECOGNIZED DRUG - OTHER] PO SCH (09:00)
[2018-01-10] MEDS: CLOPIDOGREL BISULFATE 75 MG TABLET PO SCH (09:00)
[2018-01-10] MEDS: ISOSORBIDE MONONITRATE 30 MG TAB.ER.24H PO SCH (09:01)
[2018-01-10] MEDS: ASPIRIN 81 MG TAB.CHEW PO SCH (09:01)
[2018-01-10] MEDS: ATORVASTATIN 20 MG TABLET PO SCH (09:03)
[2018-01-10] MEDS ORDERED: IPRATROPIUM BROM 0.5 MG/2.5 ML VIAL.NEB (ATROVENT) INH PRN (09:30)
[2018-01-10] MEDS ORDERED: ALBUTEROL SULFATE 0.083% 2.5 MG/3 ML VIAL.NEB INH PRN (09:30)
--- NOTE | 2018-01-10 10:25 | NUR ---
ROUNDS Pt sitting up ion bed with no c/o shortness of breath, no c/o pain or discomfort. Pt seen by Dr. Cramer earlier-she informed pt they may need to adjust his "fluid meds". Pt given fresh cup of coffee per request. Needs met, call light within reach.
[2018-01-10 10:30] VITALS: BP_SYST 130
[2018-01-10 11:49] VITALS: BP_SYST 115
--- NOTE | 2018-01-10 12:26 | NUR ---
ROUNDS/MED Pt given Insulin as ordered for glucose 254 mg/dl. Pt with no c/o shortness of breath, no c/o pain or discomfort. Needs met, call light within reach.
[2018-01-10] MEDS: IPRATROPIUM BROM 0.5 MG/2.5 ML VIAL.NEB (ATROVENT) INH SCH ×2 (13:56→19:53)
[2018-01-10] MEDS: ALBUTEROL SULFATE 0.083% 2.5 MG/3 ML VIAL.NEB INH SCH ×2 (13:56→19:53)
--- NOTE | 2018-01-10 14:35 | NUR ---
ROUNDS Pt sitting up in bed with no c/o shortness of breath, no c/o pain or discomfort. Pt stated he spoke with Dr. Nuñez earlier. Needs met, call light within reach.
[2018-01-10 15:42] VITALS: BP_SYST 102
--- NOTE | 2018-01-10 16:04 | NUR ---
ROUNDS Pt sitting up on bedside with no s/s resp distress, no c/o pain or discomfort. Pt given cup of coffee with sweet-n-low per pt request. Needs met, call light within reach.
--- NOTE | 2018-01-10 19:30 | NUR ---
CLOSING NOTE Pt sitting up in bed watching television. No s/s resp distress, no c/o chest pain or discomfort. Needs met, call light within reach.
--- NOTE | 2018-01-10 19:30 | NUR ---
Initial Note Received patient awake, alert and oriented. No SOB noted. Denies any n/v or pain at this time. Saline lock flushed - patent. Skin intact and no peripheral edema noted. On room air. NSR on monitor. Care and monitoring will be provided. Needs attended. Call light within reach. Bed at lowest position at all times. Refused bed alarm. Ambulates well with steady gait. Kept warm and comfortable.
[2018-01-10 20:00] VITALS: BP_SYST 103
--- NOTE | 2018-01-10 20:15 | NUR ---
RN Note Due meds given, tolerated well. Given snack as requested. Latest blood sugar was 250, coverage given. Needs attended.
[2018-01-11] VITALS: BP_SYST 112
--- NOTE | 2018-01-11 | NUR ---
RN Note Sleeping at this time. No SOB or grimacing noted.
[2018-01-11] MEDS: IPRATROPIUM BROM 0.5 MG/2.5 ML VIAL.NEB (ATROVENT) INH SCH ×4 (00:52→19:50)
[2018-01-11] MEDS: ALBUTEROL SULFATE 0.083% 2.5 MG/3 ML VIAL.NEB INH SCH ×4 (00:52→19:50)
--- NOTE | 2018-01-11 02:42 | NUR ---
RN Note Asleep. Turns by himself. No distress noted.
--- NOTE | 2018-01-11 05:15 | NUR ---
RN Note Patient awake and alert. Lab at the bedside for blood draw and patient requests to have his blood sugar checked as well. Due meds given. Flushed saline lock and latest blood sugar was 121, no coverage given. Complain of mild pain generalized. Repositions himself. Kept warm and comfortable.
[2018-01-11] MEDS: ACETAMINOPHEN 500 MG TABLET PO SCH ×3 (05:18→21:01)
[2018-01-11] MEDS: NORMAL SALINE 5 ML DISP.SYRIN IVF SCH ×3 (05:19→21:01)
--- NOTE | 2018-01-11 06:03 | NUR ---
End Note Afebrile. VS stable. No complain of SOB or n/v throughout the night. Medicated for pain twice as scheduled. Complain of mild generalized pain. Saline lock. Latest blood sugar was 121, no coverage given. Refused SCDs. Ambulates well with steady gait and no SOB. Repositions himself. AM labs today. Care and monitoring provided per protocol. Needs attended. Call light within reach. Bed at lowest position at all times. Refused bed alarm. Kept warm and comfortable. NSR on monitor.
[2018-01-11 06:46] LABS: BASOPHILS % (AUTO) 0.4 % (0.0-2.0); EOSINOPHILS # (AUTO) 0.4 K/uL (0.0-0.4); EOSINOPHILS % (AUTO) 4.5 % (0.0-4.0); HEMATOCRIT 36.6 % (36-54); HEMOGLOBIN 12.2 g/dL (14.0-18.0); LYMPHOCYTES # (AUTO) 2.9 K/uL (1.0-5.5); LYMPHOCYTES % (AUTO) 33.7 % (20.5-51.5); MEAN CORPUSCULAR HEMOGLOBIN 30 pg (27-31); MEAN CORPUSCULAR HGB CONC 33 % (32-36); MEAN CORPUSCULAR VOLUME 89 fL (79.0-98.0); MONOCYTES # (AUTO) 0.7 K/uL (0.0-1.0); MONOCYTES % (AUTO) 7.9 % (1.7-9.3); NEUTROPHILS # (AUTO) 4.7 K/uL (1.8-7.7); NEUTROPHILS % (AUTO) 53.5 % (40.0-70.0); PLATELET COUNT (AUTO) 157 K/uL (130-430); RED BLOOD CELL COUNT(AUTO) 4.11 MIL/uL (4.2-6.2); RED CELL DISTRIBUTION WIDTH 13.8 % (9.0-15.0); WHITE BLOOD COUNT (AUTO) 8.7 K/uL (4.8-10.8)
[2018-01-11 06:47] LABS: CALCIUM 8.8 mg/dL (8.4-11.0); CREATININE 1.19 mg/dL (0.55-1.30); POTASSIUM 3.9 mmol/L (3.5-5.1)
--- NOTE | 2018-01-11 07:24 | NUR ---
AM ROUNDS: Patient is resting in bed. No signs or symptoms of distress noted.
[2018-01-11] MEDS: ATORVASTATIN 20 MG TABLET PO SCH (08:22)
[2018-01-11] MEDS: ISOSORBIDE MONONITRATE 30 MG TAB.ER.24H PO SCH (08:23)
[2018-01-11] MEDS: CARVEDILOL 25 MG TABLET (COREG) PO SCH ×2 (08:23→21:01)
[2018-01-11] MEDS: FUROSEMIDE 40 MG TABLET PO SCH ×2 (08:23→21:01)
[2018-01-11] MEDS: CLOPIDOGREL BISULFATE 75 MG TABLET PO SCH (08:24)
[2018-01-11] MEDS: BENAZEPRIL HCL 20 MG TABLET (LOTENSIN) PO SCH (08:24)
[2018-01-11] MEDS: ASPIRIN 81 MG TAB.CHEW PO SCH (08:24)
[2018-01-11] MEDS: amLODIPine BESYLATE 5 MG TABLET PO SCH (08:25)
[2018-01-11 08:29] VITALS: BP_SYST 115
--- NOTE | 2018-01-11 09:35 | NUR ---
NOTE Received pt from Albert MADRIGAL for continuation of care. Pt stable and has call light within reach.
--- NOTE | 2018-01-11 09:35 | NUR ---
REPORT: Given to Basilia for continuation of care.
--- NOTE | 2018-01-11 10:35 | NUR ---
Note Agree with Albert MADRIGAL MST assessment done this shift.
[2018-01-11 12:00] VITALS: BP_SYST 96
[2018-01-11] MEDS: INSULIN REGULAR, HUMAN 100 UNITS/ML, 10 ML VIAL (novoLIN R) SUBCUT PRN ×2 (12:26→21:05)
--- NOTE | 2018-01-11 13:45 | NUR ---
note Pt was seen and assessed by Dr Alexandro Nuñez around noon. Pt's questions/concerns were answered at this time. Pt's tele unit attached and intact all shift. No needs noted. No SOB/resp distress or chest pain/discomfort noted all shift. Pt checked on q1' and PRN all shift for needs and care. Call light within reach.
--- NOTE | 2018-01-11 14:20 | NUR ---
DC PLANNING Discussed dc planning w Dr Nuñez in [facility] around 1235, states ordering venous dplr of rt lower extremity if neg for DVT plan to dc home today.
--- NOTE | 2018-01-11 14:40 | NUR ---
Note Called Dr Alexandro Nuñez for results of US Doppler of lower extremity (Rt) at 1429. Waiting for call back.
[2018-01-11 15:37] VITALS: BP_SYST 103
--- NOTE | 2018-01-11 16:50 | NUR ---
Note Dr Nuñez was called again to give results of US of lower extremity.
--- NOTE | 2018-01-11 17:45 | NUR ---
Note Pt sitting up in bed eating his dinner. Tele unit has been attached and intact all shift. IV in left forearm intact and patent. Pt was checked on q1' and PRN all shift for needs and care. No SOB/resp distress or pain/discomfort noted at this time. Pt maintained with safety precautions all shift. No resp distress noted on ambulation to the bathroom, ambulates with a steady gait. No needs noted at this time. Call light within reach.
--- NOTE | 2018-01-11 19:10 | NUR ---
OPENING NOTE Received report from Basilia. Patient resting in bed awake, alert, oriented x4. Breathing unlabored and even on room air. No signs of distress, no need at this time. Fall and safety precautions in place. Bed in lowest position, brake on, call light within reach. Alarm refused. SCDs refused. IV access saline locked. Will continue to monitor.
[2018-01-11 20:05] VITALS: BP_SYST 108
--- NOTE | 2018-01-11 21:08 | NUR ---
Med Pass. Blood sugar 154. Administered 2 units of regular insulin PRN per sliding scale per order.
--- NOTE | 2018-01-11 23:36 | NUR ---
Patient resting in bed with eyes closed. Breathing unlabored and even on room air. No signs of distress, no need at this time. Fall and safety precautions in place. Bed in lowest position, brake on, call light within reach. Will continue to monitor.
[2018-01-11 23:47] VITALS: BP_SYST 103
[2018-01-12] MEDS: ALBUTEROL SULFATE 0.083% 2.5 MG/3 ML VIAL.NEB INH SCH ×3 (01:00→13:00)
[2018-01-12] MEDS: IPRATROPIUM BROM 0.5 MG/2.5 ML VIAL.NEB (ATROVENT) INH SCH ×3 (01:00→13:00)
[2018-01-12] MEDS: ACETAMINOPHEN 500 MG TABLET PO SCH (06:24)
[2018-01-12] MEDS: INSULIN REGULAR, HUMAN 100 UNITS/ML, 10 ML VIAL (novoLIN R) SUBCUT PRN ×2 (06:27→11:39)
[2018-01-12] MEDS: NORMAL SALINE 5 ML DISP.SYRIN IVF SCH (06:28)
--- NOTE | 2018-01-12 06:30 | NUR ---
Med Pass. Blood sugar 160. Administered 2 units of regular insulin SQ per PRN insulin sliding scale.
--- NOTE | 2018-01-12 07:26 | NUR ---
CLOSING NOTE Gave report to Basilia. Patient resting in bed with eyes closed. Breathing unlabored and even on room air. No signs of distress, no need at this time. Fall and safety precautions in place. Bed in lowest position, brake on, call light within reach. Endorsed care to day shift nurse.
[2018-01-12 07:43] VITALS: BP_SYST 115
--- NOTE | 2018-01-12 08:00 | NUR ---
Note Pt sitting on side of bed eating his breakfast. No SOB/resp distress or chest pain/discomfort noted at this time. Tele unit attached and intact at this time. IV in left hand intact and patent. Call light within reach - no needs noted at this time.
[2018-01-12] MEDS: FUROSEMIDE 40 MG TABLET PO SCH (08:26)
[2018-01-12] MEDS: BENAZEPRIL HCL 20 MG TABLET (LOTENSIN) PO SCH (08:26)
[2018-01-12] MEDS: CARVEDILOL 25 MG TABLET (COREG) PO SCH (08:27)
[2018-01-12] MEDS: ISOSORBIDE MONONITRATE 30 MG TAB.ER.24H PO SCH (08:27)
[2018-01-12] MEDS: CLOPIDOGREL BISULFATE 75 MG TABLET PO SCH (08:27)
[2018-01-12] MEDS: ATORVASTATIN 20 MG TABLET PO SCH (08:27)
[2018-01-12] MEDS: ASPIRIN 81 MG TAB.CHEW PO SCH (08:28)
[2018-01-12] MEDS: amLODIPine BESYLATE 5 MG TABLET PO SCH (08:28)
[2018-01-12 11:27] VITALS: BP_SYST 102
--- NOTE | 2018-01-12 12:00 | NUR ---
Note Pt resting in bed. Denies any needs at this time. Pt checked on q1' for needs and care. Call light within reach.
--- NOTE | 2018-01-12 12:35 | NUR ---
Note Dr A Paliwal on the floor to assess pt at this time.
[2018-01-12 13:34] VITALS: BP_SYST 112
--- NOTE | 2018-01-12 13:55 | NUR ---
Note Pt's tele unit was dc'd and returned to quality technician. IV in left hand was dc'd - no swelling/redness/bleeding or drainage noted at this time. Pt dressed in street clothes and packed all belongings. Pt checked side table and drawers for belongings. Pt given discharge instructions and questions/concerns were answered at this time. Pt stable. Denies any SOB/resp distress or chest pain/discomfort noted. Pt stable at this time. No needs noted at this time.
--- NOTE | 2018-01-12 14:00 | NUR ---
Post discharge appt. Pt already has an appt with patient safety tech Dr Mccauley at [facility] in [place] at 11.30am on 01/17/18.
--- NOTE | 2018-01-12 14:00 | NUR ---
note Pt off the floor to private car with all his belongings and discharge paperwork.
--- NOTE | 2018-01-13 14:45 | NUR ---
DISCHARGE FOLLOW UP PHONE CALL: DIRECTOR OF ASSESSING phoned pt @ [phone] who states he is doing well. Pt states he has an appointment with Dr. Garces and his PCP, Dr. Lomax on 01/17. Pt states his glucose levels are out of control but is monitoring it. Pt states he takes his DM pills and is logging everything down for the doctor to see. Pt did not have any new medications and no questions/concerns regarding his d/c instructions. DIRECTOR OF ASSESSING encouraged pt to bring his d/c instructions and his medications to his appointment next week. DIRECTOR OF ASSESSING encouraged pt to call [id number] if questions arise.
== END 2018-01-12 14:00 | disposition home or self-care (01) | DRG 291 ==
LOC: SED 06:14 → STU 08:58
PROVIDERS: ADMIT Preventive Medicine Preventive Medicine/Occupational Environmental Medicine; ATTEND Preventive Medicine Preventive Medicine/Occupational Environmental Medicine
DX: I11.0 Hypertensive heart disease with heart failure (principal); J96.01 Acute respiratory failure with hypoxia; I50.43 Acute on chronic combined systolic (congestive) and diastolic (congestive) heart failure; E78.5 Hyperlipidemia, unspecified; E11.65 Type 2 diabetes mellitus with hyperglycemia; I27.20 Pulmonary hypertension, unspecified; R74.0 Nonspecific elevation of levels of transaminase and lactic acid dehydrogenase [LDH]; E78.00 Pure hypercholesterolemia, unspecified; F17.210 Nicotine dependence, cigarettes, uncomplicated; I25.10 Atherosclerotic heart disease of native coronary artery without angina pectoris; I25.2 Old myocardial infarction; Z82.49 Family history of ischemic heart disease and other diseases of the circulatory system; Z83.3 Family history of diabetes mellitus; Z95.1 Presence of aortocoronary bypass graft; Z95.5 Presence of coronary angioplasty implant and graft; Z79.82 Long term (current) use of aspirin; Z79.899 Other long term (current) drug therapy; I42.0 Dilated cardiomyopathy
CPT/HCPCS: 36415; 36600; 71045; 80048; 80053; 82803-TC; 82962; 83735-TC; 83880; 84100-TC; 84484; 85025; 85610-TC; 85730-TC; 87081; 93005; 93971; 94640; 96361; 96374; 96375; 99285; J1815; J1940; J2930; J7030; J7613

== ENCOUNTER 2019-06-05 02:45 | Inpatient (IN) | payer OTHER, MEDICAID ==
[~2019-06-05] VITALS: Ht 180.3 cm; Wt 76.7 kg
[~2019-06-05 02:45] MED LIST changes: -BENA40TA2 PO; +BENA40TA8 PO
[2019-06-05 02:47] VITALS: BP_SYST 143
[2019-06-05] MEDS ORDERED: ASPIRIN 325 MG TABLET PO ONE ×2 (03:04→03:30)
[2019-06-05] MEDS ORDERED: NITROGLYCERIN 0.4 MG TAB.SUBL SL ONE ×3 (03:04→03:30)
[2019-06-05] MEDS ORDERED: ASPIRIN 325 MG TABLET ONE (03:24)
[2019-06-05 03:37] LABS: BASOPHILS % (AUTO) 0.6 % (0.0-2.0); EOSINOPHILS # (AUTO) 0.2 K/uL (0.0-0.4); HEMATOCRIT 44.7 % (36-54); HEMOGLOBIN 14.6 g/dL (14.0-18.0); LYMPHOCYTES # (AUTO) 1.9 K/uL (1.0-5.5); LYMPHOCYTES % (AUTO) 29.9 % (20.5-51.5); MEAN CORPUSCULAR HEMOGLOBIN 30 pg (27-31); MEAN CORPUSCULAR HGB CONC 33 % (32-36); MEAN CORPUSCULAR VOLUME 92 fL (79.0-98.0); MONOCYTES # (AUTO) 0.5 K/uL (0.0-1.0); NEUTROPHILS # (AUTO) 3.6 K/uL (1.8-7.7); NEUTROPHILS % (AUTO) 57.5 % (40.0-70.0); PLATELET COUNT (AUTO) 130 K/uL (130-430); RED BLOOD CELL COUNT(AUTO) 4.87 MIL/uL (4.2-6.2); WHITE BLOOD COUNT (AUTO) 6.2 K/uL (4.8-10.8)
[2019-06-05 04:05] LABS: ALBUMIN 3.3 g/dL (3.4-4.8); CALCIUM 8.6 mg/dL (8.4-11.0); CREATININE 1.13 mg/dL (0.55-1.30); POTASSIUM 3.6 mmol/L (3.5-5.1); TOTAL BILIRUBIN 0.3 mg/dL (0.0-1.0)
[2019-06-05] MEDS ORDERED: METO2.5T6 PO (04:16)
[2019-06-05] MEDS ORDERED: POTA-10 PO (04:16)
[2019-06-05] MEDS ORDERED: CARV25TA55 PO (04:16)
[2019-06-05] MEDS ORDERED: triseba (04:16)
[2019-06-05] MEDS ORDERED: AMLO5TAB4 PO (04:16)
[2019-06-05] MEDS ORDERED: EMPA10TA PO (04:18)
[2019-06-05] MEDS ORDERED: NITROGLYCERIN 0.4 MG TAB.SUBL SL PRN (04:45)
[2019-06-05 07:50] VITALS: BP_SYST 136
[2019-06-05] MEDS ORDERED: ACETAMINOPHEN 325 MG TABLET PO PRN (09:00)
[2019-06-05] MEDS: METOLAZONE 2.5 MG TABLET PO SCH (10:08)
[2019-06-05] MEDS: ASPIRIN 81 MG TAB.CHEW PO SCH (10:09)
[2019-06-05] MEDS: FUROSEMIDE 40 MG TABLET PO SCH ×2 (10:10→21:33)
[2019-06-05] MEDS: CARVEDILOL 25 MG TABLET (COREG) PO SCH ×2 (10:10→21:33)
[2019-06-05] MEDS: ISOSORBIDE MONONITRATE 30 MG TAB.ER.24H PO SCH (10:10)
[2019-06-05] MEDS: amLODIPine BESYLATE 5 MG TABLET PO SCH (10:11)
[2019-06-05] MEDS: ATORVASTATIN 20 MG TABLET PO SCH (10:11)
[2019-06-05] MEDS: CLOPIDOGREL BISULFATE 75 MG TABLET PO SCH (10:12)
[2019-06-05 12:26] VITALS: BP_SYST 129
[2019-06-05] MEDS: ACETAMINOPHEN 500 MG TABLET PO SCH ×2 (13:29→21:33)
[2019-06-05] MEDS ORDERED: GLUCOSE 15 GM GEL (in 37.5 GM TUBE) PO PRN (14:00)
[2019-06-05] MEDS ORDERED: DEXTROSE 50%-WATER 50 ML DISP.SYRIN IVP PRN (14:00)
[2019-06-05] MEDS ORDERED: D5W 1,000 ML IV PRN (14:00)
[2019-06-05 16:58] VITALS: BP_SYST 91
[2019-06-05] MEDS: INSULIN REGULAR, HUMAN 100 UNITS/ML, 10 ML VIAL (humuLIN R) SUBCUT PRN (17:48)
[2019-06-05 19:30] VITALS: BP_SYST 102
[2019-06-06 00:22] VITALS: BP_SYST 105
[2019-06-06] MEDS: ACETAMINOPHEN 500 MG TABLET PO SCH ×3 (06:35→22:00)
[2019-06-06 06:46] LABS: BASOPHILS % (AUTO) 0.5 % (0.0-2.0); EOSINOPHILS # (AUTO) 0.2 K/uL (0.0-0.4); EOSINOPHILS % (AUTO) 3.3 % (0.0-4.0); HEMATOCRIT 48.3 % (36-54); HEMOGLOBIN 15.8 g/dL (14.0-18.0); LYMPHOCYTES # (AUTO) 1.8 K/uL (1.0-5.5); LYMPHOCYTES % (AUTO) 26.8 % (20.5-51.5); MEAN CORPUSCULAR HEMOGLOBIN 30 pg (27-31); MEAN CORPUSCULAR HGB CONC 33 % (32-36); MEAN CORPUSCULAR VOLUME 92 fL (79.0-98.0); MONOCYTES # (AUTO) 0.5 K/uL (0.0-1.0); MONOCYTES % (AUTO) 7.3 % (1.7-9.3); NEUTROPHILS # (AUTO) 4.3 K/uL (1.8-7.7); NEUTROPHILS % (AUTO) 62.1 % (40.0-70.0); RED BLOOD CELL COUNT(AUTO) 5.25 MIL/uL (4.2-6.2); RED CELL DISTRIBUTION WIDTH 14.6 % (9.0-15.0); WHITE BLOOD COUNT (AUTO) 6.9 K/uL (4.8-10.8)
[2019-06-06 07:51] LABS: PLATELET COUNT (AUTO) 131 K/uL (130-430)
[2019-06-06 08:00] VITALS: BP_SYST 119
[2019-06-06] MEDS: ISOSORBIDE MONONITRATE 30 MG TAB.ER.24H PO SCH (08:45)
[2019-06-06] MEDS: FUROSEMIDE 40 MG TABLET PO SCH ×2 (08:45→21:53)
[2019-06-06] MEDS: CLOPIDOGREL BISULFATE 75 MG TABLET PO SCH (08:46)
[2019-06-06] MEDS: CARVEDILOL 25 MG TABLET (COREG) PO SCH ×2 (08:46→21:53)
[2019-06-06] MEDS: ATORVASTATIN 20 MG TABLET PO SCH (08:46)
[2019-06-06] MEDS: amLODIPine BESYLATE 5 MG TABLET PO SCH (08:47)
[2019-06-06] MEDS: METOLAZONE 2.5 MG TABLET PO SCH (08:47)
[2019-06-06] MEDS: ASPIRIN 81 MG TAB.CHEW PO SCH (08:47)
[2019-06-06 08:48] LABS: ALBUMIN 3.6 g/dL (3.4-4.8); CALCIUM 9.2 mg/dL (8.4-11.0); CREATININE 1.15 mg/dL (0.55-1.30); POTASSIUM 3.2 mmol/L (3.5-5.1); THYROID STIMULATING HORMONE 0.92 uIu/mL (0.34-4.82); TOTAL BILIRUBIN 0.7 mg/dL (0.0-1.0)
[2019-06-06] MEDS: INSULIN REGULAR, HUMAN 100 UNITS/ML, 10 ML VIAL (humuLIN R) SUBCUT PRN ×2 (11:26→21:59)
[2019-06-06 12:10] VITALS: BP_SYST 106
[2019-06-06 16:47] VITALS: BP_SYST 102
[2019-06-06] MEDS ORDERED: POTASSIUM CHLORIDE 20 MEQ TAB.PRT.SR PO ONE ×2 (22:45→23:30)
[2019-06-07 00:23] VITALS: BP_SYST 101
[2019-06-07] MEDS: ACETAMINOPHEN 500 MG TABLET PO SCH ×2 (06:00→13:36)
[2019-06-07 07:50] VITALS: BP_SYST 128
[2019-06-07] MEDS: ISOSORBIDE MONONITRATE 30 MG TAB.ER.24H PO SCH (09:16)
[2019-06-07] MEDS: ASPIRIN 81 MG TAB.CHEW PO SCH (09:16)
[2019-06-07] MEDS: amLODIPine BESYLATE 5 MG TABLET PO SCH (09:16)
[2019-06-07] MEDS: CLOPIDOGREL BISULFATE 75 MG TABLET PO SCH (09:16)
[2019-06-07] MEDS: FUROSEMIDE 40 MG TABLET PO SCH (09:17)
[2019-06-07] MEDS: CARVEDILOL 25 MG TABLET (COREG) PO SCH (09:17)
[2019-06-07] MEDS: METOLAZONE 2.5 MG TABLET PO SCH (09:17)
[2019-06-07] MEDS: ATORVASTATIN 20 MG TABLET PO SCH (09:17)
[2019-06-07] MEDS: INSULIN REGULAR, HUMAN 100 UNITS/ML, 10 ML VIAL (humuLIN R) SUBCUT PRN ×2 (11:59→17:46)
[2019-06-07 12:29] VITALS: BP_SYST 102
[2019-06-07 16:21] VITALS: BP_SYST 101
[2019-06-07 19:43] VITALS: BP_SYST 101
== END 2019-06-07 20:00 | disposition home or self-care (01) | DRG 206 ==
LOC: SED 02:45 → STU 04:40
PROVIDERS: ADMIT Family Medicine; ATTEND Family Medicine
DX: M94.0 Chondrocostal junction syndrome [Tietze] (principal); E44.1 Mild protein-calorie malnutrition; I25.5 Ischemic cardiomyopathy; E11.9 Type 2 diabetes mellitus without complications; E78.5 Hyperlipidemia, unspecified; I11.0 Hypertensive heart disease with heart failure; I25.10 Atherosclerotic heart disease of native coronary artery without angina pectoris; G89.4 Chronic pain syndrome; I50.9 Heart failure, unspecified; Z82.49 Family history of ischemic heart disease and other diseases of the circulatory system; Z83.3 Family history of diabetes mellitus; Z95.1 Presence of aortocoronary bypass graft; Z95.810 Presence of automatic (implantable) cardiac defibrillator
CPT/HCPCS: 36415; 71045; 80053; 80061; 82550-TC; 82962; 83036; 83880; 84443-TC; 84484; 85025; 85379; 93005; 93306; 99285; G0378; J1815

== ENCOUNTER 2020-02-05 00:59 | Inpatient (IN) | payer OTHER, BC, SELFPAY ==
[~2020-02-05] VITALS: Ht 180.3 cm; Wt 83.9 kg
[~2020-02-05 00:59] MED LIST changes: +CARV25TA55 PO; +EMPA10TA PO; +METO2.5T6 PO; +POTA-10 PO; +triseba
[2020-02-05 01:03] VITALS: BP_SYST 156
--- NOTE | 2020-02-05 01:10 | NUR ---
Placed in room 6 . Placed on csw, blood pressure machine and pulse oximeter. To gown for exam. Side rails up. Report given to Kimberly MADRIGAL.
--- NOTE | 2020-02-05 01:27 | NUR ---
patient denies cough, fever, chills, nausea, vomiting, constipation, diarrhea. pt denies pain.
--- NOTE | 2020-02-05 01:27 | NUR ---
pt a&o x4 from home c/o of shortness of breath for past two nights when he lays down to sleep. pt hx of CHF. pt reports worsening pressure in mid back when trying to take deep breath. pt denies taking any new medications recently. pt states he feels a bloatedness in his abdomen x1 week. pt takes lasix 40mg in the morning and afternoon. pt denies swelling of lower extremities. will continue to monitor.
--- NOTE | 2020-02-05 01:30 | NUR ---
# 20 gauge angiocath placed to LAC. Use of asceptic technique. Opsite placed over site. Blood return noted. Blood, blood cultures, lactic for lab drawn from site. Flushed with 10 cc of normal saline. No evidence of infiltration noted. Patient tolerated well.
--- NOTE | 2020-02-05 01:39 | NUR ---
radiology at bedside for xrays.
--- NOTE | 2020-02-05 01:48 | NUR ---
ER Dr. TAVAREZ at bedside examining patient.
--- NOTE | 2020-02-05 02:05 | NUR ---
COVID SWAB COLLECTED AND SENT TO LAB.
[2020-02-05 02:23] LABS: BASOPHILS # (AUTO) 0.1 K/uL (0.0-0.2); BASOPHILS % (AUTO) 0.9 % (0.0-2.0); EOSINOPHILS # (AUTO) 0.3 K/uL (0.0-0.4); EOSINOPHILS % (AUTO) 2.5 % (0.0-4.0); HEMATOCRIT 42.1 % (36-54); HEMOGLOBIN 14.2 g/dL (14.0-18.0); LYMPHOCYTES # (AUTO) 2.2 K/uL (1.0-5.5); LYMPHOCYTES % (AUTO) 21.7 % (20.5-51.5); MEAN CORPUSCULAR HEMOGLOBIN 32 pg (27-31); MEAN CORPUSCULAR HGB CONC 34 % (32-36); MEAN CORPUSCULAR VOLUME 93 fL (79.0-98.0); MONOCYTES # (AUTO) 0.5 K/uL (0.0-1.0); MONOCYTES % (AUTO) 5.4 % (1.7-9.3); NEUTROPHILS % (AUTO) 69.5 % (40.0-70.0); PLATELET COUNT (AUTO) 154 K/uL (130-430); RED BLOOD CELL COUNT(AUTO) 4.51 MIL/uL (4.2-6.2); RED CELL DISTRIBUTION WIDTH 14.7 % (9.0-15.0); WHITE BLOOD COUNT (AUTO) 10.1 K/uL (4.8-10.8)
[2020-02-05 02:32] LABS: PROTHROMBIN TIME 9.9 SECS (9.5-12.5)
[2020-02-05 02:35] LABS: ALBUMIN 3.7 g/dL (3.4-4.8); CALCIUM 8.9 mg/dL (8.4-11.0); CREATININE 0.91 mg/dL (0.55-1.30)
--- NOTE | 2020-02-05 02:43 | NUR ---
CRITICAL LAB REPORTING - TROPONIN 5.38. AWARE.
[2020-02-05] MEDS ORDERED: ASPIRIN 81 MG TAB.CHEW PO ONE (02:45)
[2020-02-05] MEDS ORDERED: ENOXAPARIN SODIUM 60 MG/0.6 ML SYRINGE SUBCUT ONE (02:45)
[2020-02-05] MEDS ORDERED: ENOXAPARIN SODIUM 80 MG/0.8 ML SYRINGE ONE (03:15)
--- NOTE | 2020-02-05 03:20 | NUR ---
lab at bedside for second lactic.
--- NOTE | 2020-02-05 03:26 | NUR ---
second nurse at bedside completing repeat EKG.
[2020-02-05] MEDS ORDERED: NITROGLYCERIN 0.4 MG TAB.SUBL SL ONE ×2 (03:57→04:00)
--- NOTE | 2020-02-05 03:57 | NUR ---
Dr Martin spoke Dr Sebastian (cardio consult)
[2020-02-05] MEDS ORDERED: POTASSIUM CHLORIDE 20 MEQ TAB.PRT.SR PO ONE (04:00)
[2020-02-05] MEDS ORDERED: *HEPARIN PER PHARMACY XX PRN (04:00)
--- NOTE | 2020-02-05 04:02 | NUR ---
first dose of nitroglycerin tablet 0.4mg given sublingually per MD order.
--- NOTE | 2020-02-05 04:04 | NUR ---
lab at bedside drawing troponin
--- NOTE | 2020-02-05 04:07 | NUR ---
second dose of nitroglycerin tablet 0.4mg given sublingually per MD order. pt reports symptoms have not improved.
--- NOTE | 2020-02-05 04:12 | NUR ---
third dose of nitroglycerin tablet 0.4mg given sublingually per MD order. pt reported minor improvement in breathing. MD aware.
--- NOTE | 2020-02-05 04:42 | NUR ---
critical lab reporting - troponin 4.417. aware.
--- NOTE | 2020-02-05 05:11 | NUR ---
Patient's code status is full code paperwork completed and placed in chart.
--- NOTE | 2020-02-05 06:10 | NUR ---
patient vital signs stable. patient sleeping comfortably in bed. no signs of acute distress. will continue to monitor.
[2020-02-05] MEDS: D5NS 1,000 ML IV SCH ×2 (06:33→07:10)
--- NOTE | 2020-02-05 07:07 | NUR ---
Patient will be admitted to care of Juliet. Admitted to tele unit. Will go to room pending. Belongings list completed. Complete and up to date summary report printed. SBAR report to be given at bedside with opportunity for questions.
--- NOTE | 2020-02-05 07:13 | NUR ---
report given to KAITLIN Hull for continuation of care.
--- NOTE | 2020-02-05 07:15 | NUR ---
Report from Kimberly MADRIGAL
--- NOTE | 2020-02-05 07:20 | NUR ---
Patient sitting up in ana, Francisco&Ox4 NPO status
--- NOTE | 2020-02-05 08:40 | NUR ---
Patient awake & alert, sitting up in [facility]
[2020-02-05] MEDS ORDERED: DOCUSATE SODIUM 100 MG/10 ML UDC PO PRN (09:15)
[2020-02-05] MEDS ORDERED: FUROSEMIDE 40 MG TABLET PO SCH (09:15)
[2020-02-05] MEDS ORDERED: ONDANSETRON HCL 4 MG/2 ML VIAL IVP PRN (09:15)
[2020-02-05] MEDS ORDERED: BENAZEPRIL HCL 20 MG TABLET (LOTENSIN) PO SCH (09:15)
[2020-02-05] MEDS ORDERED: NON-FORMULARY MEDICATION (Empagliflozin (Jardiance) 10 MG) PO SCH (09:15)
[2020-02-05] MEDS ORDERED: MORPHINE 2 MG/ML INJ. SYRINGE IVP PRN (09:15)
[2020-02-05] MEDS ORDERED: D5NS 1,000 ML IV SCH (09:15)
[2020-02-05] MEDS ORDERED: HYDROcodone/ACETAMIN 7.5-325 MG TAB PO PRN (09:15)
[2020-02-05] MEDS ORDERED: ZOLPIDEM TARTRATE 5 MG TABLET PO PRN (09:15)
[2020-02-05] MEDS ORDERED: ACETAMINOPHEN 500 MG TABLET PO PRN (09:15)
[2020-02-05] MEDS ORDERED: D5W 1,000 ML IV PRN (09:30)
[2020-02-05] MEDS ORDERED: NITROGLYCERIN 0.4 MG TAB.SUBL SL PRN (09:30)
[2020-02-05] MEDS ORDERED: DEXTROSE 50% JECT 50 ML DISP.SYRIN IVP PRN (09:30)
[2020-02-05] MEDS ORDERED: GLUCOSE (DEXTROSE) ORAL GEL -Adults PO PRN (09:30)
--- NOTE | 2020-02-05 10:09 | NUR ---
DR MALONE HERE TO SEE PT
--- NOTE | 2020-02-05 10:28 | NUR ---
Dr. Chung at bedside examining patient.
[2020-02-05] MEDS ORDERED: metFORMIN HCL 500 MG TABLET PO ONE (10:45)
[2020-02-05] MEDS ORDERED: FUROSEMIDE 40 MG TABLET PO ONE (10:45)
[2020-02-05] MEDS ORDERED: PANTOPRAZOLE SODIUM 40 MG TAB PO ONE (10:45)
[2020-02-05] MEDS ORDERED: CARVEDILOL 25 MG TABLET (COREG) PO ONE (11:00)
[2020-02-05] MEDS ORDERED: ATORVASTATIN 20 MG TABLET PO ONE (11:00)
[2020-02-05] MEDS ORDERED: amLODIPine BESYLATE 5 MG TABLET PO ONE (11:00)
[2020-02-05] MEDS ORDERED: lisinopriL 20 MG TABLET PO ONE (11:00)
[2020-02-05 11:38] LABS: BILIRUBIN,URINE NEGATIVE (NEGATIVE); BLOOD, URINE NEGATIVE (NEGATIVE); CLARITY/URINE SLIGHTLY HAZY (CLEAR); COLOR,URINE ORANGE (YELLOW); GLUCOSE,URINE NEGATIVE (NEGATIVE); KETONES,URINE 1+ (NEGATIVE); LEUKOCYTE ESTERASE ,URINE NEGATIVE (NEGATIVE); NITRITE, URINE NEGATIVE (NEGATIVE); PROTEIN URINE 2+ (NEGATIVE); UROBILINOGEN,URINE 0.2 (0.2-1.0)
[2020-02-05 11:43] LABS: FREE T4 (FREE THYROXINE) 1.2 ng/dl (0.8-1.5); PHOSPHORUS 2.5 mg/dL (2.7-4.5); THYROID STIMULATING HORMONE 1.11 uIu/mL (0.36-3.74)
[2020-02-05 11:55] LABS: BACTERIA,URINE FEW /HPF (None Seen); MUCUS,URINE 1+ /LPF (None Seen); RBC,URINE NONE SEEN /HPF (0-3); WBC,URINE 0-3 /HPF (0-3)
[2020-02-05 11:57] LABS: BARBITURATE, URINE NEGATIVE (NEG <=200); BENZODIAZEPINE, URINE NEGATIVE (NEG <=150); CANNABINOID, URINE NEGATIVE (NEG <=50); COCAINE, URINE NEGATIVE (NEG <=150); METHAMPHETAMINES SCREEN,URINE NEGATIVE (NEG <=500); OPIATE, URINE NEGATIVE (NEG <=100); PHENCYCLIDINE SCREEN,URINE NEGATIVE (NEG <=25); UR TRICYCLIC ANTIDEPRESSANTS NEGATIVE (NEG <=300); URINE AMPHETAMINE NEGATIVE (NEG <=500); URINE METHADONE NEGATIVE (NEG <=200); URINE OXYCODONE SCREEN NEGATIVE (NEG <=100); URINE PROPOXYPHENE SCREEN NEGATIVE (NEG <=300)
--- NOTE | 2020-02-05 12:05 | NUR ---
Per Dr. Chung discontinue NPO, daibetic diet
--- NOTE | 2020-02-05 12:07 | NUR ---
PT ambulatory to toilet
--- NOTE | 2020-02-05 12:10 | NUR ---
Medication reconciliation completed with information provided by Patient. Any prior medication reconciliation on file was reviewed and corrected.
[2020-02-05] MEDS ORDERED: HEPARIN SODIUM,PORCINE 3000 UNITS/0.6 ML BOLUS IVP PRN (13:00)
[2020-02-05] MEDS ORDERED: HEPARIN SODIUM,PORCINE 2000 UNITS/0.4 ML BOLUS IVP PRN (13:00)
[2020-02-05] MEDS ORDERED: HEPARIN 25,000 UNITS in 250 ML PREMIX IV PRN (13:00)
[2020-02-05] MEDS ORDERED: NACL 0.9% 1,000 ML IV SCH (13:15)
--- NOTE | 2020-02-05 13:15 | NUR ---
Patient in patient restroom x20 min. knoccked on door x3 patient responded verbally.
--- NOTE | 2020-02-05 13:38 | NUR ---
Patient educated on smoking not allowed in hospital. Patient denied smoking in restroom, offered nicotine patch with MD order. patient denied need for nicotine patch.
--- NOTE | 2020-02-05 15:15 | NUR ---
PT SITTING UP IN [facility] A&OX4
--- NOTE | 2020-02-05 17:30 | NUR ---
PT GIVEN DINNER TRAY
--- NOTE | 2020-02-05 18:35 | NUR ---
Patient will be admitted to care of DR ASTORGA. Admitted to unit. Will go to room 104B. Belongings list completed. Complete and up to date summary report printed. SBAR report to be given at bedside with opportunity for questions.
--- NOTE | 2020-02-05 18:56 | NUR ---
ADMISSION NOTE Received patient from ER via ana, received report from CANDELARIA MADRIGAL. Patient admitted with diagnosis of CP. Patient oriented to hospital routine, call light, toileting and safety-patient verbalized understanding.
--- NOTE | 2020-02-05 19:10 | NUR ---
OPENING NOTES PATIENT IS SITTING AT THE SIDE OF THE BED WITH ADMISSION NURSE AT BEDSIDE. NO SIGNS OF ACUTE RESPIRATORY DISTRESS NOTED. WILL CONTINUE TO MONITOR.
[2020-02-05] MEDS ORDERED: *LOVENOX 1MG/KG Q12H/PHARMACY XX ONE (19:15)
[2020-02-05 19:20] VITALS: BP_SYST 104
--- NOTE | 2020-02-05 20:30 | NUR ---
INITIAL NOTE PATIENT IS AGITATED AT THIS TIME, NO SIGNS OF DISTRESS NOTED. IV SITE PATENT, DRESSINGS C/D/I. ORIENTED PATIENT ON PLAN OF CARE AND ROOM. PATIENT RAISING VOICE WHEN EXPLAINING PLAN OF CARE SAYING THAT HE HAS BEEN COMPLAINING OF CONSTIPATION. EXPLAINED THAT THERE IS A PRN AVAILABLE. PATIENT REFUSES BED ALARM AFTER PATIENT DEMONSTRATES PROPER CALL LIGHT USAGE. BED AT LOWEST POSITION. CALL LIGHT WITHIN REACH, WILL CONTINUE TO MONITOR.
[2020-02-05] MEDS: FUROSEMIDE 40 MG/4 ML VIAL IVP SCH (21:00)
--- NOTE | 2020-02-05 22:00 | NUR ---
SPOKE TO DR. HESTER, CLARIFIED IF PATIENT WILL RECEIVE IVP AND PO LASIX. PO LASIX TO BE DISCONTINUED.
[2020-02-05] MEDS: CARVEDILOL 25 MG TABLET (COREG) PO SCH (22:18)
[2020-02-05] MEDS: ENOXAPARIN SODIUM 80 MG/0.8 ML SYRINGE SUBCUT SCH (22:19)
--- NOTE | 2020-02-05 22:20 | NUR ---
PROVIDED PO MEDICATIONS WELL IVP LASIX 4OMG, IV SITE PATENT, DRESSINGS C/D/I. PATIENT TOLERATED WELL. WILL CONTINUE TO MONITOR.
[2020-02-05] MEDS: INSULIN LISPRO SLIDING SCALE 100 UNITS/ML VIAL (humaLOG) SUBCUT PRN (22:38)
[2020-02-06 00:15] VITALS: BP_SYST 98
--- NOTE | 2020-02-06 00:24 | NUR ---
PATIENT IS IN THE BATHROOM AGAIN HOPING THAT THE COLACE WILL WORK. EXPLAINED TO PATIENT AGAIN THAT IT MAY TAKE LONGER TO WORK AND TO NOT TRY TO PUSH SO HARD. PATIENT WALKS WITH STEADY GAIT. WILL CONTINUE TO MONITOR.
--- NOTE | 2020-02-06 06:11 | NUR ---
CLOSING NOTES PATIENT IS RESTING, NO SIGNS OF DISTRESS NOTED. PATIENT AMBULATED TO THE RESTROOM MANY TIMES. IV SITE PATENT, DRESSINGS C/D/I, IVF RUNNING. COLOSTOMY BAG CHANGED. CALL LIGHT WITHIN REACH, BED ALARM REFUSED AFTER PATIENT REFUSED AFTER RISKS EXPLAINED. BED AT LOWEST POSITION. ALL NEEDS MET THROUGHOUT SHIFT. WILL ENDORSE CARE TO ONCOMING SHIFT.
[2020-02-06 06:24] LABS: BASOPHILS % (AUTO) 0.4 % (0.0-2.0); EOSINOPHILS # (AUTO) 0.1 K/uL (0.0-0.4); EOSINOPHILS % (AUTO) 1.4 % (0.0-4.0); HEMATOCRIT 35.4 % (36-54); HEMOGLOBIN 11.8 g/dL (14.0-18.0); LYMPHOCYTES # (AUTO) 2.5 K/uL (1.0-5.5); LYMPHOCYTES % (AUTO) 27.3 % (20.5-51.5); MEAN CORPUSCULAR HEMOGLOBIN 31 pg (27-31); MEAN CORPUSCULAR HGB CONC 33 % (32-36); MEAN CORPUSCULAR VOLUME 93 fL (79.0-98.0); MONOCYTES # (AUTO) 0.8 K/uL (0.0-1.0); MONOCYTES % (AUTO) 9.1 % (1.7-9.3); NEUTROPHILS # (AUTO) 5.7 K/uL (1.8-7.7); NEUTROPHILS % (AUTO) 61.8 % (40.0-70.0); PLATELET COUNT (AUTO) 122 K/uL (130-430); RED BLOOD CELL COUNT(AUTO) 3.79 MIL/uL (4.2-6.2); RED CELL DISTRIBUTION WIDTH 14.8 % (9.0-15.0); WHITE BLOOD COUNT (AUTO) 9.3 K/uL (4.8-10.8)
[2020-02-06 06:55] LABS: CALCIUM 7.9 mg/dL (8.4-11.0); CREATININE 0.86 mg/dL (0.55-1.30); POTASSIUM 3.3 mmol/L (3.5-5.1)
--- NOTE | 2020-02-06 07:35 | NUR ---
CRITICAL LAB: RECEIVED TROPONIN RESULT OF 2.804, PT ASYMPTOMATIC, CALL PLACED TO FAISAL GILMORE, AWAITING CALL BACK.
--- NOTE | 2020-02-06 07:40 | NUR ---
CONCRETE LABORER PAGED YURI BEAL PAGEDAT [phone] SPOKE WITH MINDA.
--- NOTE | 2020-02-06 07:45 | NUR ---
ASSUMPTION OF CARE: RECEIVED PT A/A/OX4, DX:RISK FOR CARDIAC DECREASE, R/T NSTEMI, VSS PT ASYMPTOMATIC, SR ON MONITOR, BREATH SOUNDS ARE CLEAR, BREATHING UNLABORED, NO C/O PAIN OR DISCOMFORT, IV SITE INTACT, PATENT, NO REDNESS OR SWELLING, ORIENTED TO UNIT AND CALL LIGHT, PLACED WITHIN REACH, WILLM CONT' TO MONITOR AND ASSESS.
--- NOTE | 2020-02-06 08:00 | NUR ---
VISIT: AT BEDSIDE FOR ASSESSMENT OF PT, DISCUSSED POC WITH PT, VERBALIZES UNDERSTANDING, NEW ORDERS GIVEN, WILL CONT' TO MONITOR AND ASSESS.
[2020-02-06 08:05] VITALS: BP_SYST 94
[2020-02-06] MEDS ORDERED: POTASSIUM CHLORIDE 20 MEQ TAB.PRT.SR PO ONE (08:15)
[2020-02-06] MEDS ORDERED: NACL 0.9% 1,000 ML IV SCH (08:15)
[2020-02-06] MEDS: SPIRONOLACTONE 25 MG TABLET (ALDACTONE) PO SCH (09:00)
[2020-02-06] MEDS ORDERED: POTASSIUM CHLORIDE 40 MEQ, LIDOCAINE JECT 2% PF 100 MG 50 MG in NS 250 ML IV PRN (09:00)
[2020-02-06] MEDS: CARVEDILOL 25 MG TABLET (COREG) PO SCH ×2 (09:00→21:00)
[2020-02-06] MEDS: lisinopriL 20 MG TABLET PO SCH (09:00)
[2020-02-06] MEDS: amLODIPine BESYLATE 5 MG TABLET PO SCH (09:00)
--- NOTE | 2020-02-06 09:00 | NUR ---
BANQUET LINE COOK: MORNING MEDS GIVEN, PER ORDERED BY Murray, TOLERATED WELL. WILL CONT TO MONITOR AND ASSESS.
[2020-02-06] MEDS: FUROSEMIDE 40 MG/4 ML VIAL IVP SCH ×2 (09:11→20:56)
[2020-02-06] MEDS: ATORVASTATIN 20 MG TABLET PO SCH (09:11)
[2020-02-06] MEDS: PANTOPRAZOLE SODIUM 40 MG TAB PO SCH (09:13)
[2020-02-06] MEDS: ENOXAPARIN SODIUM 80 MG/0.8 ML SYRINGE SUBCUT SCH ×2 (09:17→21:00)
--- NOTE | 2020-02-06 09:30 | NUR ---
VISIT: AT BEDSIDE FOR ASSESSMENT OF PT, DISCUSSED POC WITH PT, VERBALIZES UNDERSTANDING, NEW ORDERS GIVEN, WILL CONT' TO MONITOR AND ASSESS.
[2020-02-06 12:34] VITALS: BP_SYST 139
--- NOTE | 2020-02-06 15:00 | NUR ---
NURSES NOTES: PT RESTING IN BED WHILE WATCHING TELEVISION, NO C/O PAIN, SR ON THE MONITOR, MADE COMFORTABLE, NEEDS MET, CALL LIGHT PLACED WITHIN REACH, WILL CONT' WITH POC.
[2020-02-06 16:37] VITALS: BP_SYST 105
--- NOTE | 2020-02-06 18:00 | NUR ---
NURSES NOTES: PT A/A/O4 SITTING UP AT BEDSIDE, NO S/S OF DISTRESS,CALL LIGHT PLACED WITHIN REACH, WILL CONT' WITH PLAN OF CARE
[2020-02-06] MEDS ORDERED: SPIRONOLACTONE 25 MG TABLET (ALDACTONE) PO ONE (18:30)
[2020-02-06] MEDS: metFORMIN HCL 500 MG TABLET PO SCH (18:38)
--- NOTE | 2020-02-06 19:34 | NUR ---
OPENING NOTES: Received report from dayshift nurse. Patient is sitting in bed, in stable condition. He is A & O x3 with and does not have any concerns at this time. Ensured all safety precautions. Bed is locked and in the lowest position. Call light within reach.
[2020-02-06 20:00] VITALS: BP_SYST 102
--- NOTE | 2020-02-06 20:45 | NUR ---
MEDICATION ADMINISTRATION: Patient is laying in bed with no s/s of distress or discomfort. Medications were administered as ordered except Coreg held due to BP 102/64. Patient tolerated medications well. I educated patient about Lasix, it's benefits and side effects. He verbalized understanding and does not have any questions or concerns at this time. Will continue to monitor.
[2020-02-06] MEDS: INSULIN LISPRO SLIDING SCALE 100 UNITS/ML VIAL (humaLOG) SUBCUT PRN (20:59)
--- NOTE | 2020-02-06 23:00 | NUR ---
RN ROUNDS: Patient is resting in bed and appears to be asleep. He has unlabored breathing on room air and does not have any s/s of distress or discomfort. Bed is in the lowest position and call light within reach. Will continue to monitor patient.
[2020-02-07] VITALS: BP_SYST 116
--- NOTE | 2020-02-07 01:00 | NUR ---
RN ROUNDS: Patient is laying in bed and continues to be asleep. He is not having any s/s of distress or discomfort. Will continue to monitor patient.
--- NOTE | 2020-02-07 03:00 | NUR ---
RN ROUNDS: Patient is in bed and appears to be asleep. He is not having any s/s of distress or discomfort. Will continue to monitor patient.
--- NOTE | 2020-02-07 05:00 | NUR ---
RN ROUNDS: Patient is laying in bed with no s/s of distress or discomfort. He is appears to be asleep. Bed is in the lowest position, call light within reach. Will continue to monitor.
[2020-02-07] MEDS: INSULIN LISPRO SLIDING SCALE 100 UNITS/ML VIAL (humaLOG) SUBCUT PRN ×2 (06:13→11:55)
[2020-02-07 06:20] LABS: BASOPHILS % (AUTO) 0.3 % (0.0-2.0); EOSINOPHILS # (AUTO) 0.2 K/uL (0.0-0.4); EOSINOPHILS % (AUTO) 1.7 % (0.0-4.0); HEMATOCRIT 36.6 % (36-54); HEMOGLOBIN 12.2 g/dL (14.0-18.0); LYMPHOCYTES # (AUTO) 1.8 K/uL (1.0-5.5); LYMPHOCYTES % (AUTO) 17.5 % (20.5-51.5); MEAN CORPUSCULAR HEMOGLOBIN 31 pg (27-31); MEAN CORPUSCULAR HGB CONC 33 % (32-36); MEAN CORPUSCULAR VOLUME 94 fL (79.0-98.0); MONOCYTES # (AUTO) 0.9 K/uL (0.0-1.0); MONOCYTES % (AUTO) 9.4 % (1.7-9.3); NEUTROPHILS # (AUTO) 7.2 K/uL (1.8-7.7); NEUTROPHILS % (AUTO) 71.1 % (40.0-70.0); PLATELET COUNT (AUTO) 131 K/uL (130-430); RED BLOOD CELL COUNT(AUTO) 3.91 MIL/uL (4.2-6.2); RED CELL DISTRIBUTION WIDTH 14.4 % (9.0-15.0); WHITE BLOOD COUNT (AUTO) 10.1 K/uL (4.8-10.8)
[2020-02-07 07:10] LABS: CALCIUM 7.8 mg/dL (8.4-11.0); CREATININE 1.09 mg/dL (0.55-1.30); POTASSIUM 3.8 mmol/L (3.5-5.1)
--- NOTE | 2020-02-07 07:31 | NUR ---
CLOSING NOTES: Patient is sitting in bed, in stable condition. He is currently asleep, on tele monitor. All needs were met throughout shift. Ensured all safety precautions. Bed is locked and in the lowest position. Call light within reach. Have endorsed care to dayshift nurse.
[2020-02-07 07:47] VITALS: BP_SYST 114
--- NOTE | 2020-02-07 07:50 | NUR ---
am notes pt in bed sitting. a/ox3. denies any chest pain or sob. res even and unlabored. vitals stable. safety/fall precautions maintained. call light within reach,. will conitnue to monitor
[2020-02-07] MEDS ORDERED: BENA20TA9 PO (08:39)
[2020-02-07] MEDS: PANTOPRAZOLE SODIUM 40 MG TAB PO SCH (08:53)
[2020-02-07] MEDS: ATORVASTATIN 20 MG TABLET PO SCH (08:53)
[2020-02-07] MEDS: FUROSEMIDE 40 MG/4 ML VIAL IVP SCH (09:00)
[2020-02-07] MEDS: SPIRONOLACTONE 25 MG TABLET (ALDACTONE) PO SCH (09:00)
[2020-02-07] MEDS: CARVEDILOL 25 MG TABLET (COREG) PO SCH (09:00)
[2020-02-07] MEDS: lisinopriL 20 MG TABLET PO SCH (09:00)
[2020-02-07] MEDS: amLODIPine BESYLATE 5 MG TABLET PO SCH (09:00)
[2020-02-07] MEDS: ENOXAPARIN SODIUM 80 MG/0.8 ML SYRINGE SUBCUT SCH (09:02)
[2020-02-07] MEDS: metFORMIN HCL 500 MG TABLET PO SCH (09:12)
--- NOTE | 2020-02-07 11:30 | NUR ---
ROUNDS PT STABLE. NOT IN ACUTE DISTRESS. DENIES ANY CHEST PAIN OR SOB.SEEN BY DR HESTER AND DR MALONE. PT IS OK FOR DISCHARGE HOME PER DR MALONE PT SAFE TO DRIVE HOME PER DR MALONE.
[2020-02-07 12:15] VITALS: BP_SYST 110
--- NOTE | 2020-02-07 12:18 | NUR ---
,[facility] OFFICE CALLED AT [phone] SCHEDULED FOLLOW UP APPOINTMENT ON FEBRUARY 15, 2020 AT [facility] FOR 1020AM LOCATION [address] [place] [address] [address] [facility], [id number]
[2020-02-07 12:44] VITALS: BP_SYST 110
--- NOTE | 2020-02-07 13:30 | NUR ---
D/C Patient Patient given medication reconciliation form and D/C instructions. Exit Care provided. Patient verbalized understanding. MD discussed with patient the results and treatment provided. Ambulatory with steady gait for discharge to home. Patient in stable condition, ID band removed. IV catheter removed, intact and dressing applied, no active bleeding.. Patient educated on pain management/ follow up discharge appoinment. All belongings sent with patient.pt ambulated in hallway with steady gait.pt has his car parked in parking lot [facility] of the hospital.pt discharged to home in stable condition
--- NOTE | 2020-02-13 11:46 | NUR ---
Discharge Follow Up Phone Call Phoned patient, . Patient stated he was doing well. He has made his follow up appointments and will not fill one of his prescriptions because his executive marketing assistant would like him to take a different medication. He stated that he was concerned that he had been thought to be smoking while in the ED but was not. Passed the information on to Performance Improvement. No other questions or concerns.
== END 2020-02-07 13:30 | disposition home or self-care (01) | DRG 280 ==
LOC: SED 00:59 → STU 04:00
PROVIDERS: ADMIT Family Medicine; ATTEND Family Medicine
DX: I21.4 Non-ST elevation (NSTEMI) myocardial infarction (principal); I50.43 Acute on chronic combined systolic (congestive) and diastolic (congestive) heart failure; I25.10 Atherosclerotic heart disease of native coronary artery without angina pectoris; I11.0 Hypertensive heart disease with heart failure; E87.6 Hypokalemia; E78.5 Hyperlipidemia, unspecified; K59.00 Constipation, unspecified; F17.210 Nicotine dependence, cigarettes, uncomplicated; E11.9 Type 2 diabetes mellitus without complications; E11.65 Type 2 diabetes mellitus with hyperglycemia; F17.200 Nicotine dependence, unspecified, uncomplicated; I25.5 Ischemic cardiomyopathy; Z20.828 Contact with and (suspected) exposure to other viral communicable diseases; Z82.49 Family history of ischemic heart disease and other diseases of the circulatory system; Z83.3 Family history of diabetes mellitus; Z95.810 Presence of automatic (implantable) cardiac defibrillator; Z95.1 Presence of aortocoronary bypass graft; Z79.899 Other long term (current) drug therapy
CPT/HCPCS: 36415; 71045; 80048; 80053; 80061; 80307; 81000-TC; 82150-TC; 82962; 83036; 83605; 83690-TC; 83735-TC; 83880; 84100-TC; 84439; 84443-TC; 84484; 85025; 85379; 85610-TC; 85730-TC; 87040-TC; 93005; 93306; 96372; 99291; G0378; J1650; J1940